=== PATIENT | female | born 1960 | race Caucasian/White ===

== ENCOUNTER → 2018-03-08 | Outpatient (CLI) | payer OTHER ==
--- NOTE | 2018-03-10 10:57 | MM ---
Reason for exam: screening (asymptomatic). Last mammogram was performed 5 years and 1 month ago. History: Patient is postmenopausal. Cyst aspiration of the left breast, June 12, 2004. Physical Findings: A clinical breast exam by your physician is recommended on an annual basis and results should be correlated with mammographic findings. MG 3D Screening Mammo W/Cad Bilateral CC and MLO view(s) were taken. Technologist: RT Rachana (R)(M) Prior study comparison: February 10, 2013, bilateral digital screening mammo w/CAD. November 03, 2011, bilateral digital screening mammo w/CAD. There are scattered fibroglandular densities. No suspicious abnormality. No significant changes when compared with prior studies. ASSESSMENT: Negative, BI-RAD 1 RECOMMENDATION: Routine screening mammogram of both breasts in 1 year.
== END | disposition home or self-care (01) ==
LOC: RADMAMWWP 13:08
PROVIDERS: ATTEND Family Medicine
DX: Z12.31 Encounter for screening mammogram for malignant neoplasm of breast (principal)
CPT/HCPCS: 77063; 77067

== ENCOUNTER → 2018-03-09 | Outpatient (CLI) | payer OTHER ==
--- NOTE | 2018-03-10 14:57 | BD ---
EXAMINATION TYPE: Axial Bone Density DATE OF EXAM: 03/09/2018 COMPARISON: NONE CLINICAL HISTORY: Height: 5 FT 1 IN Weight: 146 FRAX RISK QUESTIONS: History of Fracture in Adulthood: YES Secondary Osteoporosis: 3. Menopause before 45: YES Current Tobacco Use: YES RISK FACTORS HISTORY OF: Active: YES Postmenopausal woman: AGE 43 MEDICATIONS: Additional Medications: NONE Additional History: EXAM MEASUREMENTS: Bone mineral densitometry was performed using the [employer]. Bone mineral density as measured about the Lumbar spine is: ----- L1-L4(G/cm2): 0.878 T Score Values are as follows: ----- L2: -2.9 ----- L3: -2.9 ----- L4: -2.5 ----- L1-L4: -2.5 Bone mineral density has: DECREASED -0.1 % since study of: 2011 Bone mineral density about the R hip (g/cm2): 0.767 Bone mineral density about the L hip (g/cm2): 0.752 T Score values are as follows: -----R Neck: -1.9 -----L Neck: -2.1 -----R Total: -2.0 -----L Total: -1.9 Bone mineral density has: DECREASED -2.7 % since study of: 2011 IMPRESSION: Osteoporosis (T Score less than -2.5). There is increased fracture risk and therapy is usually indicated based on age. Re-Screen 1-2 years. NOTE: T-SCORE=SD OF THE YOUNG ADULT MEAN.
== END | disposition home or self-care (01) ==
LOC: RADBDWWP 14:49
PROVIDERS: ATTEND Family Medicine
DX: M81.0 Age-related osteoporosis without current pathological fracture (principal)
CPT/HCPCS: 77080

== ENCOUNTER 2018-03-23 07:41 | Day surgery (SDC) | payer OTHER ==
[2018-03-19 14:40] VITALS: BMI 26.2
[~2018-03-23 07:41] MED LIST: LACTATED RINGERS 1,000 ML IV SCH; LIDOCAINE 1% 20 ML VIAL (10MG/ML) FOR IV START INTRADERMA PRN
[2018-03-23 08:16] VITALS: RESP 16; TEMP 97.8
[2018-03-23] MEDS ORDERED: LIDOCAINE 1% INJ 10MG/ML (20 ML MDV) ONE (09:04)
[2018-03-23] MEDS ORDERED: PROPOFOL 10 MG/ML 20 ML VIAL IV ONE (09:04)
--- NOTE | 2018-03-23 09:27 | P.PCN ---
Date of Procedure: 03/23/18 Procedure(s) Performed: Procedure: Total colonoscopy. Preoperative diagnosis: Screening for neoplasia, patient has history of cancerous polyps and is S/P right hemicolectomy. Postoperative diagnosis: Prior hemicolectomy, otherwise exam within normal limits. Preparation: HalfLytely prep. Sedation: Was provided by anesthesia. 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 There is also a family history of colon cancer. She had appendectomy and and right hemicolectomy with all lymph nodes resected showing no evidence of cancer. She had a surveillance exam in 2009 and 2012 which were normal. At this time, she has no abdominal complaints, bleeding or anemia. Procedure: With the patient on her left lateral decubitus position and after informed consent and adequate sedation, the perianal area was inspected and it did not show any fissures or fistulas. There were no masses felt on digital rectal examination. The Olympus CFQ 160L video colonoscope was then inserted in the rectum in the usual fashion and advanced to the right side. The area of the anastomosis on the right side was noted and there was no evidence of recurrent cancer at the anastomotic site. The rest of the colon appeared healthy with no because of abnormalities, diverticular disease of polyps. I retroflexed the endoscope in the rectum before the endoscope was withdrawn. Low -grade internal hemorrhoids were noted but there was no evidence of bleeding. The patient tolerated the procedure well. Plan: The patient was reassured. She will follow-up with you as planned and I recommended repeat exam in 5 years.
[2018-03-23 09:39] VITALS: BP 128/76; PULSE 63
== END 2018-03-23 10:19 | disposition home or self-care (01) ==
LOC: ORWHC2ENDO 07:41
DX: Z12.11 Encounter for screening for malignant neoplasm of colon (principal); Z85.038 Personal history of other malignant neoplasm of large intestine; Z90.49 Acquired absence of other specified parts of digestive tract; Z98.0 Intestinal bypass and anastomosis status; Z80.0 Family history of malignant neoplasm of digestive organs; Z88.2 Allergy status to sulfonamides; Z72.0 Tobacco use
CPT/HCPCS: J2001; J2704; G0105

== ENCOUNTER → 2023-03-13 | Outpatient (CLI) | payer OTHER ==
--- NOTE | 2023-03-13 20:23 | MR ---
EXAMINATION TYPE: MR pelvis wo con DATE OF EXAM: 03/13/2023 COMPARISON: Outside imaging and [facility], radiograph 02/21/2023 CLINICAL INDICATION:Female, 63 years old with history of M25.551; Possible occult fracture Rt Pelvis, Pain in Pelvis area due to fall off kitchen counter TECHNIQUE: Triplane multisequence imaging was performed of the pelvis. IV Contrast: None FINDINGS: Reproductive: Vagina: Unremarkable. Uterus: The uterus is anteverted in position. Uterus measures 5.1 x 2.0 x 4.0 cm.. The endometrium an d junctional zone are within normal limits. Multiple nabothian cysts are seen in the lower uterine s egment. Ovaries: Right ovary is not visualized. Left ovary demonstrates simple appearing cyst measuring up to 2.7 cm. Bladder: Unremarkable. Bowel: Unremarkable as visualized. Peritoneum: A small amount of free fluid in the pelvis. Lymph nodes: No evidence of adenopathy. Vasculature: Unremarkable. Musculoskeletal: Bony edema involving the right pubic symphysis with associated suspected hematoma me asuring 2.7 x 1.4 cm within the myofascial planes of the right groin. High inversion recovery edema w ithin the sacrum is also present. No bony edema within the right hip/right femur. Abdominal wall/soft tissues: Unremarkable. CT earlier in the day IMPRESSION: 1. Suspected acute fracture of the right pubic symphysis with associated small hematoma in the myofa scial planes of the right groin area. Consider complete evaluation of the pelvis with CT. 2. Fracture of the sacrum with diffuse edema within the sacrum. This is suboptimally evaluated on MR I. Consider further evaluation of the sacrum with CT. 3. No evidence of fracture of the right hip/femur. 4. Left ovarian cyst measuring up to 2.7 cm.
== END | disposition home or self-care (01) ==
LOC: RADMRIMAIN 18:28
PROVIDERS: ATTEND Orthopaedic Surgery
DX: M25.551 Pain in right hip (principal); S32.10XA Unspecified fracture of sacrum, initial encounter for closed fracture; N83.202 Unspecified ovarian cyst, left side; X58.XXXA Exposure to other specified factors, initial encounter
CPT/HCPCS: 72195

== ENCOUNTER 2023-12-17 16:44 | Inpatient (IN) | payer OTHER ==
[2023-12-17] MEDS: KETOROLAC 15 MG/ML 1 ML VIAL IM STA (17:29)
[2023-12-17] MEDS: KETOROLAC 15 MG/ML 1 ML VIAL IVP STA (17:29)
--- NOTE | 2023-12-17 17:45 | XR ---
EXAMINATION TYPE: XR thoracic spine complete DATE OF EXAM: 12/17/2023 5:37 PM CLINICAL INDICATION:Female, 63 years old with history of pain, fall; [facility] COMPARISON: None TECHNIQUE: 2 views of the thoracic spine in Frontal and lateral projections. FINDINGS: No evidence of acute fracture. There is no evidence of disk space narrowing or loss of vertebral bod y height of the thoracic spine. Moderate multilevel degenerative changes are appreciated. IMPRESSION: No acute osseous pathology of the thoracic spine.
--- NOTE | 2023-12-17 17:46 | XR ---
EXAMINATION TYPE: XR lumbar spine 2 or 3V DATE OF EXAM: 12/17/2023 5:37 PM CLINICAL INDICATION:Female, 63 years old with history of pain, fall; [facility] COMPARISON: None TECHNIQUE: Frontal, lateral and coned in L5-S1 lateral views of the spine. FINDINGS: Compression deformity of the L1 vertebral body with approximately 25% height loss. No evide nce of significant spondylolisthesis. Moderate multilevel degenerative changes of the lumbar spine wi th facet arthropathy are identified. Multiple air-filled loops of bowel are present. IMPRESSION: Age indeterminate compression deformity of the L1 vertebral body with 25% height loss.
--- NOTE | 2023-12-17 18:39 | ED ---
Fall HPI - General Chief Complaint: Fall Stated Complaint: Back pain Time Seen by Provider: 12/17/23 17:00 Source: patient, EMS Mode of arrival: EMS - History of Present Illness Initial Comments: 63-year-old female presents emergency department via EMS accompanied by her for chief complaint of a fall on Thursday. Patient states that she was getting up in the middle the night to use the restroom, dizziness from standing up too quickly, when she went to reach for the bedroom door with a pulling sensation in her back while she fell to the ground on her right-hand side. It has been having difficulty ambulating over the last few days due to pain and tenderness of her spine. Patient denies loss of bladder or bowel continence or saddle anesthesias. Patient denies paresthesias to bilateral lower extremities, and has full range of motion intact of her lower extremities. Has been taking Tylenol Motrin at home with minimal relief. Has a history of a pelvic fracture which occurred last year. - Related Data Home Medications Medication Instructions Recorded Confirmed Ergocalciferol [Vitamin D2] 50,000 unit PO Q7D 03/19/18 03/23/18 Allergies Allergy/AdvReac Type Severity Reaction Status Date / Time Sulfa (Sulfonamide Allergy Anaphylaxis Verified 12/17/23 16:51 Antibiotics) Review of Systems ROS Statement: Those systems with pertinent positive or pertinent negative responses have been documented in the HPI. ROS Other: All systems not noted in ROS Statement are negative. Past Medical History Past Medical History: Cancer Additional Past Medical History / Comment(s): Hx of Colon CA 2009 History of Any Multi-Drug Resistant Organisms: None Reported Past Surgical History: Bowel Resection, Section Additional Past Surgical History / Comment(s): Colonoscopies Past Anesthesia/Blood Transfusion Reactions: No Reported Reaction Past Psychological History: No Psychological Hx Reported Smoking Status: Current every day smoker Past Alcohol Use History: None Reported Past Drug Use History: None Reported - Past Family History Mother Family Medical History: Cancer General Exam Limitations: no limitations General appearance: alert, in no apparent distress Head exam: Present: atraumatic, normocephalic, normal inspection Eye exam: Present: normal appearance, PERRL, EOMI. Absent: scleral icterus, conjunctival injection, periorbital swelling ENT exam: Present: normal exam, mucous membranes moist Neck exam: Present: normal inspection. Absent: tenderness, meningismus, lymphadenopathy Respiratory exam: Present: normal lung sounds bilaterally. Absent: respiratory distress, wheezes, rales, rhonchi, stridor Cardiovascular Exam: Present: regular rate, normal rhythm, normal heart sounds. Absent: systolic murmur, diastolic murmur, rubs, gallop, clicks GI/Abdominal exam: Present: soft, normal bowel sounds. Absent: distended, tenderness, guarding, rebound, rigid Extremities exam: Present: normal inspection, full ROM, normal capillary refill. Absent: tenderness, pedal edema, joint swelling, calf tenderness Back exam: Present: normal inspection, paraspinal tenderness, other (Numbness over the thoracolumbar junction with equal tenderness bilaterally, no paresthesias noted). Absent: CVA tenderness (R), CVA tenderness (L), muscle spasm Neurological exam: Present: alert, oriented X3, CN II-XII intact Psychiatric exam: Present: normal affect, normal mood Skin exam: Present: warm, dry, intact, normal color. Absent: rash Course Vital Signs 12/17/23 16:46 Temperature 98.4 F Pulse Rate 90 Respiratory 18 Rate Blood Pressure 167/89 O2 Sat by Pulse 95 Oximetry Medical Decision Making - Medical Decision Making Was pt. sent in by a medical professional or institution (, PA, [employer], urgent care, hospital, or longterm...) When possible be specific @ -No Did you speak to anyone other than the patient for history (EMS, parent, family, police, friend...)? What history was obtained from this source @ -No Did you review nursing and triage notes (agree or disagree)? Why? @ -I reviewed and agree with nursing and triage notes Were old charts reviewed (outside hosp., previous admission, EMS record, old EKG, old radiological studies, urgent care reports/EKG's, longterm records)? Report findings @ -No old charts were reviewed Differential Diagnosis (chest pain, altered mental status, abdominal pain women, abdominal pain men, vaginal bleeding, weakness, fever, dyspnea, syncope, headache, dizziness, GI bleed, back pain, seizure, CVA, palpatations, mental health, musculoskeletal)? @ -Differential Musculoskeletal Muscular strain, contusion, ligament sprain, fracture, arthritis, septic arthritis, bursitis, cellulitis, muscle spasm, nerve compression, DVT, arterial occlusion, herpes zoster, electrolyte abnormality, tumor.... This is not meant to be in all inclusive list EKG interpreted by me (3pts min.). @ -None X-rays interpreted by me (1pt min.). @ -xray of thoracic spine unremarkable, CT interpreted by me (1pt min.). @ -None done U/S interpreted by me (1pt. min.). @ -None done What testing was considered but not performed or refused? (CT, X-rays, U/S, labs)? Why? @ -None What meds were considered but not given or refused? Why? @ -None Did you discuss the management of the patient with other professionals (professionals i.e. , PA, [employer], lab, RT, psych nurse, addiction social worker, refinery operator helper, teacher, title officer, rn field case manager)? Give summary @ -I discussed this case with [facility], who is agreeable with admission for the patient for pain control and evaluation by orthopedics due to difficulty ambulating. Was smoking cessation discussed for >3mins.? @ -No Was critical care preformed (if so, how long)? @ -No Were there social determinants of health that impacted care today? How? (Homelessness, low income, unemployed, alcoholism, drug addiction, transportation, low edu. Level, literacy, decrease access to med. care, fci, rehab)? @ -No Was there de-escalation of care discussed even if they declined (Discuss DNR or withdrawal of care, Hospice)? DNR status @ -No What co-morbidities impacted this encounter? (DM, HTN, Smoking, COPD, CAD, Cancer, CVA, ARF, Chemo, Hep., AIDS, mental health diagnosis, sleep apnea, morbid obesity)? @ -None Was patient admitted / discharged? Hospital course, mention meds given and route, prescriptions, significant lab abnormalities, going to OR and other pertinent info. @ -Admitted. 63-year-old female with back pain after fall. physical exam remarkable for paraspinal tenderness over the thoracolumbar junction, with no acute range of motion or neurological deficits. Denies any acute bony abnormalities on physical exam. Patient has difficult time rotating in bed due to lower back pain. Age-indeterminate compression deformity of the L1 vertebral body with a 25% height loss. On reevaluation, patient states that she feels better after administration of IM Toradol. Discussed findings with patient would benefit from follow-up outpatient with orthopedics. On discussion, patient and patient's are concerned that she has been having a difficult time ambulating at home and her quality of life has decreased due to the pain in her back limiting her everyday mobility and living. I discussed this case with [facility] for potential admission, and they are agreeable for patient with orthopedics for further evaluation. bservation I discussed this case with my attending Dr. Howard, who is agreeable with plan and for observation Undiagnosed new problem with uncertain prognosis? @ -No Drug Therapy requiring intensive monitoring for toxicity (Heparin, Nitro, Insulin, Cardizem)? @ -No Were any procedures done? @ -No Diagnosis/symptom? @ -compression fracture of lumbar spine, back pain Acute, or Chronic, or Acute on Chronic? @ -Acute Uncomplicated (without systemic symptoms) or Complicated (systemic symptoms)? @ -uncomplicated Side effects of treatment? @ -No Exacerbation, Progression, or Severe Exacerbation? @ -No Poses a threat to life or bodily function? How? (Chest pain, [place], [place], pneumonia, PE, COPD, DKA, ARF, appy, cholecystitis, CVA, Diverticulitis, Homicidal, Suicidal, threat to staff... and all critical care pts) @ -No Disposition Clinical Impression: Fall, Compression fracture of L1 lumbar vertebra Disposition: ADMITTED IP TO THIS HOSP Condition: Good Referrals: Gurdeep Shultz MD [Primary Care Provider] - 1-2 days Decision to Admit Reason: Admit from (L1 compression fracture, difficulty ambulation) Decision Date: 12/17/23 Decision Time: 18:38
[2023-12-17] MEDS ORDERED: NALOXONE 0.4 MG/ML 1 ML VIAL IV PRN (18:50)
[2023-12-17 19:10] LABS: HCT 43.2 % (34.0-46.0); HGB 13.8 gm/dL (11.4-16.0); MCH 35.5 pg (25.0-35.0); MCHC 31.9 g/dL (31.0-37.0); MCV 111.4 fL (80.0-100.0); Macrocytosis Marked; Mean Platelet Volume 7.9; Platelet Count 200 k/uL (150-450); RBC 3.88 m/uL (3.80-5.40); RDW 12.8 % (11.5-15.5); WBC 8.2 k/uL (3.8-10.6)
[2023-12-17 19:21] LABS: African American GFR (CKD) >90 (>60 ml/min/1.73 sqM); Anion Gap 8 mmol/L; Blood Urea Nitrogen 30 mg/dL (7-17); Calcium 8.4 mg/dL (8.4-10.2); Carbon Dioxide 17 mmol/L (22-30); Chloride 113 mmol/L (98-107); Glucose 114 mg/dL (74-99); Non-African American GFR(CKD) >90 (>60 ml/min/1.73 sqM); Sodium 138 mmol/L (137-145)
[2023-12-17 19:34] LABS: Potassium 4.1 mmol/L (3.5-5.1)
[2023-12-17] MEDS: ACETAMINOPHEN TAB 325 MG TAB PO PRN (20:07)
[2023-12-17] MEDS: IBUPROFEN 400 MG TAB PO PRN (23:17)
[2023-12-18] MEDS: KETOROLAC 15 MG/ML 1 ML VIAL IVP PRN (09:31)
[2023-12-18] MEDS: LIDOCAINE 4% PATCH TOPICAL SCH (15:07)
--- NOTE | 2023-12-18 15:14 | P.CNOR ---
History of Present Illness - [facility] Consult date: 12/18/23 Consult reason: low back pain ( Lumbar compression fracture) History of present illness: patient is a 63-year-old female who presented to [facility] on 12/17/2023 with regards to worsening low back pain. Apparently the patient had a Fall last Thursday. Patient got up to use the restroom and became dizzy when she stumbled she felt a significant strain in her low back and then fell to the floor. A she has been able to ambulate over the last week or so, it is progressively getting worse. She has had a lot of worsening back pain with attempts to ambulate. Patient was admitted to [facility] for further evaluation under internal medicine, our orthopedic team was then danial andrews. Patient was evaluated today at bedside, she is resting comfortably in her hospital bed, family is present at bedside. Patient states most of the pain is with initiation of motion, she feels it in the center of her low back. Patient denies any numbness or tingling to the bilateral lower extremities or upper extremities at this time. Patient has had normal bowel movements and been urinating with no difficulty. She denies any numbness or tingling to the perineal or genital region. She denies any previous surgery to her lumbar spine. She admits to a pelvic fracture about 10 months ago that was treated conservatively by the other orthopedic group in town. This was on the right-hand side. Patient normally utilizes no assistive devices for ambulation. Patient has no other orthopedic complaints at this time. Review of Systems Constitutional: Reports as per [facility] Past Medical History Past Medical History: Cancer Additional Past Medical History / Comment(s): Hx of Colon CA 2009 History of Any Multi-Drug Resistant Organisms: None Reported Past Surgical History: Bowel Resection, Section Additional Past Surgical History / Comment(s): Colonoscopies Past Anesthesia/Blood Transfusion Reactions: No Reported Reaction Past Psychological History: No Psychological Hx Reported Smoking Status: Former smoker Past Alcohol Use History: None Reported Additional Past Alcohol Use History / Comment(s): has smoked for 38 years 1ppd, last cigarette Thursday before fall, none since and pt states she'd like to quit Past Drug Use History: None Reported - Past Family History Mother Family Medical History: Cancer Medications and Allergies Home Medications Medication Instructions Recorded Confirmed Type Acetaminophen Tab [Tylenol Tab] 2,000 mg PO Q6HR PRN 12/17/23 12/17/23 History Multivit-Minerals/Folic Acid 80 mcg PO DAILY 12/17/23 12/17/23 History [Centrum Adult 50 Plus Gummy] Allergies Allergy/AdvReac Type Severity Reaction Status Date / Time Sulfa (Sulfonamide Allergy Anaphylaxis Verified 12/17/23 19:26 Antibiotics) Physical Examination Gen: AOx3, NAD VSS stable at this time Integument: No open lesions or sores are visualized throughout the lumbar spine Palpation: Tenderness with palpation is noted both midline and paraspinal region of the lumbar spine. Patient demonstrates no point tenderness to the bilateral lower extremity ROM: full range of motion in all major muscle groups of the bilateral upper and lower extremities, no focal deficits appreciated Sensory Exam: Senory exam to light touch is intact C5-T1 Senosry exam to light touch is intact L2-S1 Motor: 4+/5 strength appreciated the bilateral lower extremities with hip flexion 5/5 strength appreciated in the bilateral lower extremities with knee extension, knee flexion, plantarflexion, dorsiflexion, EHL, FHL Reflexes: 2/4 in all UE and LE negative clonus bilaterally, negative Babinski bilaterally Results - Labs Labs: Abnormal Lab Results - Last 24 Hours (Table) 12/17/23 12/17/23 Range/Units 18:56 18:56 MCV 111.4 H (80.0-100.0) fL MCH 35.5 H (25.0-35.0) pg Macrocytosis Marked A Chloride 113 H (98-107) mmol/L Carbon Dioxide 17 L (22-30) mmol/L BUN 30 H (7-17) mg/dL Glucose 114 H (74-99) mg/dL H & H 12/17/23 Range/Units 18:56 Hgb 13.8 (11.4-16.0) gm/dL Hct 43.2 (34.0-46.0) % Result Diagrams: 12/17/23 18:56 12/17/23 18:56 - Diagnostic results Lumbar AP/lateral x-ray: report reviewed, image reviewed ( images and reports were reviewed of the lumbar spine. Images demonstrate compressive deformity of the L1 vertebral body.) Assessment and Plan Assessment: Low back pain L1 vertebral body compression fracture Difficulty with ambulation Other medical comorbidities Plan: I was able to discuss the case, this to include both physical exam findings and imaging studies with my attending Dr. Escobar. No emergent orthopedic surgical intervention is recommended at this time. Patient is demonstrating no acute neuropathic signs at this time. CT scan of the lumbar spine without contrast will be ordered to further evaluate for burst fracture pathology LSO brace has been ordered, I did discuss this with case management Pain control, recommend the use of anti-inflammatories, muscle relaxers and low-dose oral narcotics PT/OT recommendation, weight-bear as tolerated, avoid bending, twisting and lifting DVT prophylaxis per primary medical service Other medical specialty recommendations appreciated Will continue to follow during hospital stay Time with Patient: Less than 30
--- NOTE | 2023-12-18 16:08 | CT ---
EXAMINATION TYPE: CT lumbar spine wo con DATE OF EXAM: 12/18/2023 3:50 PM COMPARISON: Lumbar spine radiograph dated 12/17/2023 HISTORY: L1 compression fx. CT DLP: 993 mGycm Automated exposure control for dose reduction was used. Unenhanced CT of the lumbar spine was performed. Bone and soft tissue window settings are submitted as well as coronal and sagittal reconstructions. Findings: There is a moderate compression fracture of T12 with mild 10-15% retropulsion. Remaining lumbar vertebral segments are normal in height and alignment and there is no subluxation. T he disc spaces are well-maintained in height. The facet joints are intact. There are bilateral nondisplaced right sacral alar fractures. There is no lumbar disc herniation or spinal stenosis. IMPRESSION: 1. Moderate compression fracture of T12 with 10-15% retropulsion. 2. Bilateral sacral alar fractures.. 3. No large lumbar disc herniation and no spinal stenosis. 4. No significant degenerative disc disease.
--- NOTE | 2023-12-18 18:19 | P.HPIM ---
History of Present Illness H&P Date: 12/18/23 Chief Complaint: Fall/back pain 63-year-old female, with history of colon cancer in 2008, and vitamin D deficiency presents emergency department via EMS accompanied by her for chief complaint of a fall on Thursday. Patient states that she was getting up in the middle the night to use the restroom, dizziness from standing up too quickly, when she went to reach for the bedroom door with a pulling sensation in her back while she fell to the ground on her right-hand side. It has been having difficulty ambulating over the last few days due to pain and tenderness of her spine. Patient denies loss of bladder or bowel continence or saddle anesthesias. Patient denies paresthesias to bilateral lower extremities, and has full range of motion intact of her lower extremities. Has been taking Tylenol Motrin at home with minimal relief. Has a history of a pelvic fracture which occurred last year, patient was treated conservatively. X-ray of the thoracic spine is unremarkable X-ray of lumbar spine reveals indeterminate compression deformity of L1 vertebra with 25% height loss CT of the lumbar spine reveals moderate compression fraction of T12 with 10 to 15% retropulsion Review of Systems REVIEW OF SYSTEMS: CONSTITUTIONAL: No fever, no malaise, no fatigue. HEENT: No recent visual problems or hearing problems. Denied any sore throat. CARDIOVASCULAR: No chest pain, orthopnea, PND, no palpitations, no syncope. PULMONARY: No shortness of breath, no cough, no hemoptysis. GASTROINTESTINAL: No diarrhea, no nausea, no vomiting, no abdominal pain. NEUROLOGICAL: No headaches, no weakness, no numbness. HEMATOLOGICAL: Denies any bleeding or petechiae. GENITOURINARY: Denies any burning micturition, frequency, or urgency. MUSCULOSKELETAL/RHEUMATOLOGICAL: Denies any joint pain, swelling, or any muscle pain. ENDOCRINE: Denies any polyuria or polydipsia. The rest of the 14-point review of systems is negative. Past Medical History Past Medical History: Cancer Additional Past Medical History / Comment(s): Hx of Colon CA 2008 History of Any Multi-Drug Resistant Organisms: None Reported Past Surgical History: Bowel Resection, Section Additional Past Surgical History / Comment(s): Colonoscopies Past Anesthesia/Blood Transfusion Reactions: No Reported Reaction Past Psychological History: No Psychological Hx Reported Smoking Status: Former smoker Past Alcohol Use History: None Reported Additional Past Alcohol Use History / Comment(s): has smoked for 38 years 1ppd, last cigarette Thursday before fall, none since and pt states she'd like to quit Past Drug Use History: None Reported - Past Family History Mother Family Medical History: Cancer Medications and Allergies Home Medications Medication Instructions Recorded Confirmed Type Acetaminophen Tab [Tylenol Tab] 2,000 mg PO Q6HR PRN 12/17/23 12/17/23 History Multivit-Minerals/Folic Acid 80 mcg PO DAILY 12/17/23 12/17/23 History [Centrum Adult 50 Plus Gummy] Allergies Allergy/AdvReac Type Severity Reaction Status Date / Time Sulfa (Sulfonamide Allergy Anaphylaxis Verified 12/17/23 19:26 Antibiotics) Physical Exam Vitals: Vital Signs Temp Pulse Pulse Resp BP BP Pulse Ox 12/18/23 11:38 98.1 F 83 18 123/77 93 L 12/18/23 07:12 98.1 F 79 18 148/74 94 L 12/18/23 02:00 98.0 F 67 18 141/79 94 L 12/18/23 00:42 98.1 F 80 20 148/81 95 12/17/23 23:00 98.2 F 83 18 153/88 95 12/17/23 22:00 98 F 72 18 130/80 94 L 12/17/23 21:00 98.3 F 82 18 134/85 95 12/17/23 19:00 98.6 F 82 18 140/86 96 12/17/23 18:56 98.1 F 82 18 146/83 97 12/17/23 16:46 98.4 F 90 18 167/89 95 Intake and Output 12/17/23 12/18/23 12/18/23 22:59 06:59 14:59 Other: Voiding Method External Catheter # Voids 1 Weight 70.307 kg 70.307 kg General appearance: alert, in no apparent distress Head exam: Present: atraumatic, normocephalic, normal inspection Eye exam: Present: normal appearance, PERRL, EOMI. Absent: scleral icterus, conjunctival injection, periorbital swelling ENT exam: Present: normal exam, mucous membranes moist Neck exam: Present: normal inspection. Absent: tenderness, meningismus, lymphadenopathy Respiratory exam: Present: normal lung sounds bilaterally. Absent: respiratory distress, wheezes, rales, rhonchi, stridor Cardiovascular Exam: Present: regular rate, normal rhythm, normal heart sounds. Absent: systolic murmur, diastolic murmur, rubs, gallop, clicks GI/Abdominal exam: Present: soft, normal bowel sounds. Absent: distended, tenderness, guarding, rebound, rigid Extremities exam: Present: normal inspection, full ROM, normal capillary refill. Absent: tenderness, pedal edema, joint swelling, calf tenderness Back exam: Present: normal inspection, paraspinal tenderness, other (Numbness over the thoracolumbar junction with equal tenderness bilaterally, no paresthesias noted). Absent: CVA tenderness (R), CVA tenderness (L), muscle spasm Neurological exam: Present: alert, oriented X3, CN II-XII intact Results CBC & Chem 7: 12/17/23 18:56 12/17/23 18:56 Labs: Abnormal Lab Results - Last 24 Hours (Table) 12/17/23 12/17/23 Range/Units 18:56 18:56 MCV 111.4 H (80.0-100.0) fL MCH 35.5 H (25.0-35.0) pg Macrocytosis Marked A Chloride 113 H (98-107) mmol/L Carbon Dioxide 17 L (22-30) mmol/L BUN 30 H (7-17) mg/dL Glucose 114 H (74-99) mg/dL Thrombosis Risk Factor Assmnt - Choose All That Apply Any of the Below Risk Factors Present?: Yes Each Factor Represents 1 point: Obesity (BMI >25) Other Risk Factors: Yes Each Risk Factor Represents 2 Points: Age 61-74 years Other congenital or acquired thrombophilia - If yes, enter type in comment: No Thrombosis Risk Factor Assessment Total Risk Factor Score: 3 Thrombosis Risk Factor Assessment Level: Moderate Risk Assessment and Plan Assessment: 1. Fall with compression fracture of T12 vertebra on CT of thoracic spine --X-ray of thoracic spine reveals L1 vertebral body fracture with 25% height loss which is indeterminate age -- Patient has been evaluated by orthopedic surgery; no emergent orthopedic surgical intervention is recommended -- LSO brace is ordered -Pain control with anti-inflammatory medications, muscle relaxers and low-dose oral narcotics -- PT/OT is consulted with weightbearing as tolerated, avoid bending, twisting and lifting 2. Mild JESSICA; BUN slightly elevated at 30 with creatinine normal at 0.65; patient is encouraged to increase fluid intake DVT prophylaxis; SCDs/subcu heparin CODE STATUS; full code
[2023-12-18] MEDS: HYDROcodone/APAP 7.5-325MG 1 EACH TAB PO PRN (22:13)
[2023-12-19] MEDS: MULTIVITAMINS, THERA 1 EACH TAB PO SCH (08:27)
[2023-12-19 09:25] LABS: HCT 39.6 % (37.2-46.3); MCH 35.7 pg (27.0-32.0); MCHC 32.8 g/dL (32.0-37.0); MCV 108.8 FL (80.0-97.0); Mean Platelet Volume 9.9 FL (9.5-12.2); NRBC Per 100 WBC 0 X 10*3/uL (0.00-0.01); Platelet Count 187 X 10*3/uL (140-440); RBC 3.64 X 10*6/uL (4.10-5.20); RDW 12.8 % (11.5-14.5); WBC 5.66 X 10*3/uL (4.50-10.00)
[2023-12-19 09:46] LABS: Blood Urea Nitrogen 30.3 mg/dL (9.0-27.0); Calcium 9.1 mg/dL (8.7-10.3); Carbon Dioxide 21.3 mmol/L (21.6-31.8); Chloride 107 mmol/L (96-109); Glucose 89 mg/dL (70-110); Potassium 3.5 mmol/L (3.5-5.5); Sodium 140 mmol/L (135-145)
[2023-12-19 10:06] LABS: Basophils # (A) 0.01 X 10*3/uL (0.00-0.10); Basophils % (A) 0.2 %; Eosinophils # (A) 0.17 X 10*3/uL (0.04-0.35); Lymphocytes # (A) 1.33 X 10*3/uL (0.90-5.00); Lymphocytes % (A) 23.5 %; Macrocytosis (M) 2+; Monocytes # (A) 0.62 X 10*3/uL (0.20-1.00); Neutrophils # (A) 3.51 X 10*3/uL (1.80-7.70); Neutrophils % (A) 61.9 %
--- NOTE | 2023-12-19 14:14 | P.PN ---
Subjective Progress Note Date: 12/19/23 Principal diagnosis: T12 A3 burst fracture Right sacral alar fracture, old Low back pain Difficulty with ambulation Patient was evaluated today at bedside, her was also present. Patient has not got out of bed and ambulated at this time, the LSO brace was delivered yesterday. Patient continues to have significant low back pain and difficulty with trying to move around in bed. She currently has no headaches, lightheadedness, chest pain or shortness of breath Objective - Vital Signs Vital signs: Vital Signs Temp 98.1 F 12/19/23 12:33 Pulse 76 12/19/23 12:33 Resp 16 12/19/23 12:33 BP 134/72 12/19/23 12:33 Pulse Ox 95 12/19/23 12:33 FiO2 Intake & Output 12/18/23 12/19/23 12/19/23 18:59 06:59 18:59 Output Total 300 200 Balance -300 -200 Output: Urine 300 200 Other: Voiding Method External Catheter External Catheter External Catheter # Voids 2 - Exam Gen: AOx3, NAD VSS stable at this time Integument: No open lesions or sores are visualized throughout the lumbar spine Palpation: Tenderness with palpation is noted both midline and paraspinal region of the lumbar spine. Patient demonstrates no point tenderness to the bilateral lower extremity ROM: full range of motion in all major muscle groups of the bilateral upper and lower extremities, no focal deficits appreciated Sensory Exam: Senory exam to light touch is intact C5-T1 Senosry exam to light touch is intact L2-S1 Motor: 4+/5 strength appreciated the bilateral lower extremities with hip flexion 5/5 strength appreciated in the bilateral lower extremities with knee extension, knee flexion, plantarflexion, dorsiflexion, EHL, FHL Reflexes: 2/4 in all UE and LE negative clonus bilaterally, negative Babinski bilaterally - Labs CBC & Chem 7: 12/19/23 06:20 12/19/23 06:20 Labs: Abnormal Lab Results - Last 24 Hours (Table) 12/19/23 12/19/23 Range/Units 06:20 06:20 RBC 3.64 L (4.10-5.20) X 10*6/uL MCV 108.8 H (80.0-97.0) FL MCH 35.7 H (27.0-32.0) pg Macrocytosis (manual) 2+ A Carbon Dioxide 21.3 L (21.6-31.8) mmol/L BUN 30.3 H (9.0-27.0) mg/dL BUN/Creatinine Ratio 50.50 H (12.00-20.00) Ratio Assessment and Plan Assessment: Low back pain T12 A3 burst fracture Right-sided sacral alar fracture, old Difficulty with ambulation Other medical comorbidities Plan: I was able to discuss the CT scan results with my attending Dr. Gallegos sent. Will plan to continue with conservative measures, this to include weight-bear as tolerated with the brace. Depending outpatient progresses with physical therapy, we may consider further conservative measures versus discussing surgical intervention to help stabilize fracture. Pain control, recommend the use of anti-inflammatories, muscle relaxers and low-dose oral narcotics PT/OT recommendation, weight-bear as tolerated, avoid bending, twisting and lifting DVT prophylaxis per primary medical service Other medical specialty recommendations appreciated Will continue to follow during hospital stay
[2023-12-19] MEDS: ACETAMINOPHEN TAB 500 MG TAB PO PRN (17:58)
--- NOTE | 2023-12-19 18:29 | P.PN ---
Subjective Progress Note Date: 12/19/23 63-year-old female, with history of colon cancer in 2008, and vitamin D deficiency presents emergency department via EMS accompanied by her for chief complaint of a fall on Thursday. Patient states that she was getting up in the middle the night to use the restroom, dizziness from standing up too q uickly, when she went to reach for the bedroom door with a pulling sensation in her back while she fell to the ground on her right-hand side. It has been having difficulty ambulating over the last few days due to pain and tenderness of her spine. Patient denies loss of bladder or bowel continence or saddle anesthesias. Patient denies paresthesias to bilateral lower extremities, and has full range of motion intact of her lower extremities. Has been taking Tylenol Motrin at home with minimal relief. Has a history of a pelvic fracture which occurred last year, patient was treated conservatively. X-ray of the thoracic spine is unremarkable X-ray of lumbar spine reveals indeterminate compression deformity of L1 vertebra with 25% height loss CT of the lumbar spine reveals moderate compression fraction of T12 with 10 to 15% retropulsion Objective - Vital Signs Vital signs: Vital Signs Temp 98.0 F 12/19/23 07:41 Pulse 77 12/19/23 11:39 Resp 20 12/19/23 11:39 BP 138/76 12/19/23 07:41 Pulse Ox 94 L 12/19/23 07:41 FiO2 Intake & Output 12/18/23 12/19/23 12/19/23 18:59 06:59 18:59 Output Total 300 200 Balance -300 -200 Output: Urine 300 200 Other: Voiding Method External Catheter External Catheter External Catheter - Exam General appearance: alert, in no apparent distress Head exam: Present: atraumatic, normocephalic, normal inspection Eye exam: Present: normal appearance, PERRL, EOMI. Absent: scleral icterus, conjunctival injection, periorbital swelling ENT exam: Present: normal exam, mucous membranes moist Neck exam: Present: normal inspection. Absent: tenderness, meningismus, lymphadenopathy Respiratory exam: Present: normal lung sounds bilaterally. Absent: respiratory distress, wheezes, rales, rhonchi, stridor Cardiovascular Exam: Present: regular rate, normal rhythm, normal heart sounds. Absent: systolic murmur, diastolic murmur, rubs, gallop, clicks GI/Abdominal exam: Present: soft, normal bowel sounds. Absent: distended, tenderness, guarding, rebound, rigid Extremities exam: Present: normal inspection, full ROM, normal capillary refill. Absent: tenderness, pedal edema, joint swelling, calf tenderness Back exam: Present: normal inspection, paraspinal tenderness, other (Numbness over the thoracolumbar junction with equal tenderness bilaterally, no paresthesias noted). Absent: CVA tenderness (R), CVA tenderness (L), muscle spasm Neurological exam: Present: alert, oriented X3, CN II-XII intact - Labs CBC & Chem 7: 12/19/23 06:20 12/19/23 06:20 Labs: Abnormal Lab Results - Last 24 Hours (Table) 12/19/23 12/19/23 Range/Units 06:20 06:20 RBC 3.64 L (4.10-5.20) X 10*6/uL MCV 108.8 H (80.0-97.0) FL MCH 35.7 H (27.0-32.0) pg Macrocytosis (manual) 2+ A Carbon Dioxide 21.3 L (21.6-31.8) mmol/L BUN 30.3 H (9.0-27.0) mg/dL BUN/Creatinine Ratio 50.50 H (12.00-20.00) Ratio Assessment and Plan Assessment: 1. Fall with compression fracture of T12 vertebra on CT of thoracic spine --X-ray of thoracic spine reveals L1 vertebral body fracture with 25% height loss which is indeterminate age -- Patient has been evaluated by orthopedic surgery; no emergent orthopedic surgical intervention is recommended -- LSO brace is ordered -Pain control with anti-inflammatory medications, muscle relaxers and low-dose oral narcotics -- PT/OT is consulted with weightbearing as tolerated, avoid bending, twisting and lifting 2. Mild JESSICA; BUN slightly elevated at 30 with creatinine normal at 0.65; patient is encouraged to increase fluid intake DVT prophylaxis; SCDs/subcu heparin CODE STATUS; full code
--- NOTE | 2023-12-20 11:59 | P.PN ---
Subjective Progress Note Date: 12/20/23 Principal diagnosis: T12 A3 burst fracture Right sacral alar fracture, old Low back pain Difficulty with ambulation Patient was evaluated today at bedside, she is resting in her hospital bed. Patient was able to get up and ambulate today with minimal assistance, she did utilize the LSO brace. She states that she is feeling a little bit better. She currently has no headaches, lightheadedness, chest pain or shortness of breath Objective - Vital Signs Vital signs: Vital Signs Temp 97.9 F 12/20/23 07:28 Pulse 73 12/20/23 07:28 Resp 16 12/20/23 07:28 BP 141/72 12/20/23 07:28 Pulse Ox 94 L 12/20/23 07:28 FiO2 Intake & Output 12/19/23 12/20/23 12/20/23 18:59 06:59 18:59 Output Total 300 Balance -300 Output: Urine 300 Other: Voiding Method External Catheter Bedside Commode Bedside Commode External Catheter External Catheter # Voids 3 1 - Exam Gen: AOx3, NAD VSS stable at this time Integument: No open lesions or sores are visualized throughout the lumbar spine Palpation: Tenderness with palpation is noted both midline and paraspinal region of the lumbar spine. Patient demonstrates no point tenderness to the bilateral lower extremity ROM: full range of motion in all major muscle groups of the bilateral upper and lower extremities, no focal deficits appreciated Sensory Exam: Senory exam to light touch is intact C5-T1 Senosry exam to light touch is intact L2-S1 Motor: 4+/5 strength appreciated the bilateral lower extremities with hip flexion 5/5 strength appreciated in the bilateral lower extremities with knee extension, knee flexion, plantarflexion, dorsiflexion, EHL, FHL Reflexes: 2/4 in all UE and LE negative clonus bilaterally, negative Babinski bilaterally - Labs CBC & Chem 7: 12/19/23 06:20 12/19/23 06:20 Assessment and Plan Assessment: Low back pain T12 A3 burst fracture Right-sided sacral alar fracture, old Difficulty with ambulation Other medical comorbidities Plan: Recommend continuing conservative measures. I would like to see how the patient does with physical therapy tomorrow, this including how she is able to get out of bed and ambulate. Recommending use of the LSO brace while up. Continue oral anti-inflammatories, low-dose muscle relaxer as needed. PT/OT recommendation, weight-bear as tolerated, avoid bending, twisting and lifting DVT prophylaxis per primary medical service Other medical specialty recommendations appreciated Pending outpatient does with physical therapy tomorrow, the hope is we can foll ow this patient in the outpatient setting and continue conservative measures, versus the discussion of surgical intervention. Time with Patient: Less than 30
[2023-12-20] MEDS: LACTULOSE 20 GM/30 ML CUP PO SCH (13:22)
--- NOTE | 2023-12-20 14:07 | P.PN ---
Subjective Progress Note Date: 12/20/23 63-year-old female, with history of colon cancer in 2008, and vitamin D deficiency presents emergency department via EMS accompanied by her for chief complaint of a fall on Thursday. Patient states that she was getting up in the middle the night to use the restroom, dizziness from standing up too q uickly, when she went to reach for the bedroom door with a pulling sensation in her back while she fell to the ground on her right-hand side. It has been having difficulty ambulating over the last few days due to pain and tenderness of her spine. Patient denies loss of bladder or bowel continence or saddle anesthesias. Patient denies paresthesias to bilateral lower extremities, and has full range of motion intact of her lower extremities. Has been taking Tylenol Motrin at home with minimal relief. Has a history of a pelvic fracture which occurred last year, patient was treated conservatively. X-ray of the thoracic spine is unremarkable X-ray of lumbar spine reveals indeterminate compression deformity of L1 vertebra with 25% height loss CT of the lumbar spine reveals moderate compression fraction of T12 with 10 to 15% retropulsion 12/20/2023 Patient is seen and evaluated resting in bed; reports she was able to ambulate with LSO brace Vital signs are reviewed and stable with temperature 97.9, pulse 73, respirations 16 and blood pressure of 141/72 O2 saturation 94% on room air Patient is admitted post fall with T12 burst fracture Orthopedic surgery on board and recommending to continue with conservative treatment with anti-inflammatories, muscle relaxers as needed --Orthopedic surgery recommending patient set up for outpatient PT with weightbearing as tolerated, avoid bending, twisting and lifting; patient can be discharged tomorrow and will follow-up with orthopedic surgery as an outpatient Objective - Vital Signs Vital signs: Vital Signs Temp 97.9 F 12/20/23 07:28 Pulse 73 12/20/23 07:28 Resp 16 12/20/23 07:28 BP 141/72 12/20/23 07:28 Pulse Ox 94 L 12/20/23 07:28 FiO2 Intake & Output 12/19/23 12/20/23 12/20/23 18:59 06:59 18:59 Output Total 300 Balance -300 Output: Urine 300 Other: Voiding Method External Catheter Bedside Commode Bedside Commode External Catheter External Catheter # Voids 3 1 - Exam General appearance: alert, in no apparent distress Head exam: Present: atraumatic, normocephalic, normal inspection Eye exam: Present: normal appearance, PERRL, EOMI. Absent: scleral icterus, conjunctival injection, periorbital swelling ENT exam: Present: normal exam, mucous membranes moist Neck exam: Present: normal inspection. Absent: tenderness, meningismus, lymphadenopathy Respiratory exam: Present: normal lung sounds bilaterally. Absent: respiratory distress, wheezes, rales, rhonchi, stridor Cardiovascular Exam: Present: regular rate, normal rhythm, normal heart sounds. Absent: systolic murmur, diastolic murmur, rubs, gallop, clicks GI/Abdominal exam: Present: soft, normal bowel sounds. Absent: distended, tenderness, guarding, rebound, rigid Extremities exam: Present: normal inspection, full ROM, normal capillary refill. Absent: tenderness, pedal edema, joint swelling, calf tenderness Back exam: Present: normal inspection, paraspinal tenderness, other (Numbness over the thoracolumbar junction with equal tenderness bilaterally, no pares thesias noted). Absent: CVA tenderness (R), CVA tenderness (L), muscle spasm Neurological exam: Present: alert, oriented X3, CN II-XII intact - Labs CBC & Chem 7: 12/19/23 06:20 12/19/23 06:20 Assessment and Plan Assessment: 1. Fall with compression fracture of T12 vertebra on CT of thoracic spine --X-ray of thoracic spine reveals L1 vertebral body fracture with 25% height loss which is indeterminate age -- Patient has been evaluated by orthopedic surgery; no emergent orthopedic surgical intervention is recommended -- LSO brace is ordered -Pain control with anti-inflammatory medications, muscle relaxers and low-dose oral narcotics -- PT/OT is consulted with weightbearing as tolerated, avoid bending, twisting and lifting 2. Mild JESSICA; BUN slightly elevated at 30 with creatinine normal at 0.65; patient is encouraged to increase fluid intake DVT prophylaxis; SCDs/subcu heparin CODE STATUS; full code
--- NOTE | 2023-12-21 14:45 | P.PN ---
Subjective Progress Note Date: 12/21/23 Principal diagnosis: T12 A3 burst fracture Right sacral alar fracture, old Low back pain Difficulty with ambulation Patient was evaluated today at bedside, she is resting in her hospital bed. Patient continues to rate her pain extremely high without medication, she continues to utilize the LSO brace. Review of physical therapy notes did demonstrate she was able to weight-bear with a walker with minimal assistance. She currently has no headaches, lightheadedness, chest pain or shortness of breath Objective - Vital Signs Vital signs: Vital Signs Temp 97.5 F L 12/21/23 11:52 Pulse 102 H 12/21/23 11:52 Resp 18 12/21/23 11:52 BP 143/68 12/21/23 11:52 Pulse Ox 97 12/21/23 11:52 FiO2 Intake & Output 12/20/23 12/21/23 12/21/23 18:59 06:59 18:59 Other: Voiding Method Bedside Commode Bedside Commode External Catheter External Catheter # Voids 3 1 1 - Exam Gen: AOx3, NAD VSS stable at this time Integument: No open lesions or sores are visualized throughout the lumbar spine Palpation: Tenderness with palpation is noted both midline and paraspinal region of the lumbar spine. Patient demonstrates no point tenderness to the bilateral lower extremity ROM: full range of motion in all major muscle groups of the bilateral upper and lower extremities, no focal deficits appreciated Sensory Exam: Senory exam to light touch is intact C5-T1 Senosry exam to light touch is intact L2-S1 Motor: 4+/5 strength appreciated the bilateral lower extremities with hip flexion 5/5 strength appreciated in the bilateral lower extremities with knee extension, knee flexion, plantarflexion, dorsiflexion, EHL, FHL Reflexes: 2/4 in all UE and LE negative clonus bilaterally, negative Babinski bilaterally - Labs CBC & Chem 7: 12/19/23 06:20 12/19/23 06:20 Assessment and Plan Assessment: Low back pain T12 A3 burst fracture Right-sided sacral alar fracture, old Difficulty with ambulation Other medical comorbidities Plan: Patient continues to rate her pain quite high, she has done very minimal acti vity at this time. She did do okay with physical therapy today. We discussed the higher likelihood of surgical intervention, this to include posterior stabilization from T10-L1 with the possibility of spine armando versus kyphoplasty. Dr. Gallegos's and will be available in hospital on 12/22/2023 to discuss this further with the patient. Pain control, continue with current medications PT/OT recommendation, weight-bear as tolerated, avoid bending, twisting and lifting DVT prophylaxis per primary medical service Other medical specialty recommendations appreciated Further recommendations to follow Time with Patient: Less than 30
--- NOTE | 2023-12-21 20:24 | P.PN ---
Subjective 63-year-old female, with history of colon cancer in 2008, and vitamin D deficiency presents emergency department via EMS accompanied by her for chief complaint of a fall on Thursday. Patient states that she was getting up in the middle the night to use the restroom, dizziness from standing up too quickly, when she went to reach for the bedroom door with a pulling sensation in her back while she fell to the ground on her right-hand side. It has been having difficulty ambulating over the last few days due to pain and tenderness of her spine. Patient denies loss of bladder or bowel continence or saddle anesthesias. Patient denies paresthesias to bilateral lower extremities, and has full range of motion intact of her lower extremities. Has been taking Tylenol Motrin at home with minimal relief. Has a history of a pelvic fracture which occurred last year, patient was treated conservatively. X-ray of the thoracic spine is unremarkable X-ray of lumbar spine reveals indeterminate compression deformity of L1 vertebra with 25% height loss CT of the lumbar spine reveals moderate compression fraction of T12 with 10 to 15% retropulsion 12/20/2023 Patient is seen and evaluated resting in bed; reports she was able to ambulate with LSO brace Vital signs are reviewed and stable with temperature 97.9, pulse 73, respirations 16 and blood pressure of 141/72 O2 saturation 94% on room air Patient is admitted post fall with T12 burst fracture Orthopedic surgery on board and recommending to continue with conservative treatment with anti-inflammatories, muscle relaxers as needed --Orthopedic surgery recommending patient set up for outpatient PT with weightbearing as tolerated, avoid bending, twisting and lifting; patient can be discharged tomorrow and will follow-up with orthopedic surgery as an outpatient 12/21/2023 Patient remains with back pain, she rated about 5/10 in severity She has a brace Patient currently has been evaluated by surgical team for possible surgical spine stabilization versus kyphoplasty Will continue monitoring Objective - Vital Signs Vital signs: Vital Signs Temp 97.5 F L 12/21/23 11:52 Pulse 102 H 12/21/23 11:52 Resp 18 12/21/23 11:52 BP 143/68 12/21/23 11:52 Pulse Ox 97 12/21/23 11:52 FiO2 Intake & Output 12/20/23 12/21/23 12/21/23 18:59 06:59 18:59 Other: Voiding Method Bedside Commode Bedside Commode External Catheter External Catheter # Voids 3 1 1 - Exam GENERAL: The patient is alert and oriented x3, not in any acute distress. Well developed, well nourished. HEENT: Pupils are round and equally reacting to light. EOMI. No scleral icterus. No conjunctival pallor. Normocephalic, atraumatic. No pharyngeal erythema. No thyromegaly. CARDIOVASCULAR: S1 and S2 present. No murmurs, rubs, or gallops. PULMONARY: Chest is clear to auscultation, no wheezing , no crackles. ABDOMEN: Soft, nontender, nondistended, normoactive bowel sounds. No palpable organomegaly. MUSCULOSKELETAL: No joint swelling or deformity. EXTREMITIES: No cyanosis, clubbing, or pedal edema. NEUROLOGICAL: Gross neurological examination did not reveal any focal deficits. SKIN: No rashes. no petechiae. - Labs CBC & Chem 7: 12/19/23 06:20 12/19/23 06:20 Assessment and Plan Assessment: 1. Fall with compression fracture of T12 vertebra on CT of thoracic spine --X-ray of thoracic spine reveals L1 vertebral body fracture with 25% height loss which is indeterminate age -- Patient has been evaluated by orthopedic surgery; no emergent orthopedic surgical intervention is recommended -- LSO brace is ordered -Pain control with anti-inflammatory medications, muscle relaxers and low-dose oral narcotics -- PT/OT is consulted with weightbearing as tolerated, avoid bending, twisting and lifting --Patient has been evaluated by surgical team for T10-L1 posterior stabilization versus kyphoplasty by orthopedic team 2. Mild JESSICA; BUN slightly elevated at 30 with creatinine normal at 0.65; patient is encouraged to increase fluid intake DVT prophylaxis; SCDs/subcu heparin CODE STATUS; full code
--- NOTE | 2023-12-22 20:19 | P.PN ---
Subjective Progress Note Date: 12/22/23 Principal diagnosis: T12 A3 burst fracture Right sacral alar fracture, old Low back pain Difficulty with ambulation Patient was evaluated today at bedside, she is resting in her hospital bed. Dr. Escobar was available today at bedside to discuss treatment options for patient. With patient's current medical state, her difficulty with ambulation and continuing pain we are recommending surgical intervention. This was discussed at bedside at length with the patient today, she is in good understanding would like to proceed. She currently has no headaches, lightheadedness, chest pain or shortness of breath Objective - Vital Signs Vital signs: Vital Signs Temp 98.1 F 12/22/23 19:45 Pulse 90 12/22/23 19:45 Resp 16 12/22/23 12:29 BP 138/87 12/22/23 19:45 Pulse Ox 94 L 12/22/23 19:45 FiO2 Intake & Output 12/22/23 12/22/23 12/23/23 06:59 18:59 06:59 Intake Total 100 240 Balance 100 240 Intake: Oral 100 240 Other: # Voids 3 - Exam Gen: AOx3, NAD VSS stable at this time Integument: No open lesions or sores are visualized throughout the lumbar spine Palpation: Tenderness with palpation is noted both midline and paraspinal region of the lumbar spine. Patient demonstrates no point tenderness to the bilateral lower extremity ROM: full range of motion in all major muscle groups of the bilateral upper and lower extremities, no focal deficits appreciated Sensory Exam: Senory exam to light touch is intact C5-T1 Senosry exam to light touch is intact L2-S1 Motor: 4+/5 strength appreciated the bilateral lower extremities with hip flexion 5/5 strength appreciated in the bilateral lower extremities with knee extension, knee flexion, plantarflexion, dorsiflexion, EHL, FHL Reflexes: 2/4 in all UE and LE negative clonus bilaterally, negative Babinski bilaterally - Labs CBC & Chem 7: 12/19/23 06:20 12/19/23 06:20 Assessment and Plan Assessment: Low back pain T12 A3 burst fracture Right-sided sacral alar fracture, old Difficulty with ambulation Other medical comorbidities Plan: After discussion today with the patient and Dr. Escobar, we are planning for surgical intervention on 12/24/2023. We plan to proceed with a open fracture treatment of T12 with posterior stabilization from T11-L1. Risk and benefits of the procedure were discussed with the patient, this to include but not exclude infection, blood loss, development of blood clots, further worsening of s ymptoms, and adequate healing of bone, need for further surgery. Patient is in good understanding would like to proceed. Pain control, continue with current medications PT/OT recommendation, weight-bear as tolerated, avoid bending, twisting and lifting DVT prophylaxis per primary medical service Other medical specialty recommendations appreciated Continue to follow during hospital stay Time with Patient: Less than 30
--- NOTE | 2023-12-22 21:54 | P.PN ---
Subjective 63-year-old female, with history of colon cancer in 2008, and vitamin D deficiency presents emergency department via EMS accompanied by her for chief complaint of a fall on Thursday. Patient states that she was getting up in the middle the night to use the restroom, dizziness from standing up too quickly, when she went to reach for the bedroom door with a pulling sensation in her back while she fell to the ground on her right-hand side. It has been having difficulty ambulating over the last few days due to pain and tenderness of her spine. Patient denies loss of bladder or bowel continence or saddle anesthesias. Patient denies paresthesias to bilateral lower extremities, and has full range of motion intact of her lower extremities. Has been taking Tylenol Motrin at home with minimal relief. Has a history of a pelvic fracture which occurred last year, patient was treated conservatively. X-ray of the thoracic spine is unremarkable X-ray of lumbar spine reveals indeterminate compression deformity of L1 vertebra with 25% height loss CT of the lumbar spine reveals moderate compression fraction of T12 with 10 to 15% retropulsion 12/20/2023 Patient is seen and evaluated resting in bed; reports she was able to ambulate with LSO brace Vital signs are reviewed and stable with temperature 97.9, pulse 73, respirations 16 and blood pressure of 141/72 O2 saturation 94% on room air Patient is admitted post fall with T12 burst fracture Orthopedic surgery on board and recommending to continue with conservative treatment with anti-inflammatories, muscle relaxers as needed --Orthopedic surgery recommending patient set up for outpatient PT with weightbearing as tolerated, avoid bending, twisting and lifting; patient can be discharged tomorrow and will follow-up with orthopedic surgery as an outpatient 12/21/2023 Patient remains with back pain, she rated about 5/10 in severity She has a brace Patient currently has been evaluated by surgical team for possible surgical spine stabilization versus kyphoplasty Will continue monitoring 12/22/2023 Patient is currently lying in bed with no specific symptom. She is not in distress. Pain controlled She is pending open fracture treatment of T12 with posterior stabilization from T11-L1 on Objective - Vital Signs Vital signs: Vital Signs Temp 98.1 F 12/22/23 19:45 Pulse 90 12/22/23 19:45 Resp 16 12/22/23 12:29 BP 138/87 04/02/24 19:45 Pulse Ox 94 L 12/22/23 19:45 FiO2 Intake & Output 12/22/23 12/22/23 12/23/23 06:59 18:59 06:59 Intake Total 100 240 Balance 100 240 Intake: Oral 100 240 Other: # Voids 3 - Exam GENERAL: The patient is alert and oriented x3, not in any acute distress. Well developed, well nourished. HEENT: Pupils are round and equally reacting to light. EOMI. No scleral icterus. No conjunctival pallor. Normocephalic, atraumatic. No pharyngeal erythema. No thyromegaly. CARDIOVASCULAR: S1 and S2 present. No murmurs, rubs, or gallops. PULMONARY: Chest is clear to auscultation, no wheezing , no crackles. ABDOMEN: Soft, nontender, nondistended, normoactive bowel sounds. No palpable organomegaly. MUSCULOSKELETAL: No joint swelling or deformity. EXTREMITIES: No cyanosis, clubbing, or pedal edema. NEUROLOGICAL: Gross neurological examination did not reveal any focal deficits. SKIN: No rashes. no petechiae. - Labs CBC & Chem 7: 12/19/23 06:20 12/19/23 06:20 Assessment and Plan Assessment: 1. Fall with compression fracture of T12 vertebra on CT of thoracic spine --X-ray of thoracic spine reveals L1 vertebral body fracture with 25% height loss which is indeterminate age -- Patient has been evaluated by orthopedic surgery; no emergent orthopedic s urgical intervention is recommended -- LSO brace is ordered -Pain control with anti-inflammatory medications, muscle relaxers and low-dose oral narcotics -- PT/OT is consulted with weightbearing as tolerated, avoid bending, twisting and lifting --Patient has been evaluated by surgical team for T10-L1 posterior stabilization versus kyphoplasty by orthopedic team on 12/23 2. Mild JESSICA; BUN slightly elevated at 30 with creatinine normal at 0.65; patient is encouraged to increase fluid intake DVT prophylaxis; SCDs/subcu heparin CODE STATUS; full code
[2023-12-23] MEDS: HEPARIN SODIUM,PORCINE 5,000 UNIT/ML 1 ML VIAL SQ SCH (01:00)
--- NOTE | 2023-12-23 10:20 | P.PN ---
Subjective Progress Note Date: 12/23/23 Principal diagnosis: T12 A3 burst fracture Right sacral alar fracture, old Low back pain Difficulty with ambulation Patient was evaluated today at bedside, she is resting in her hospital bed. Patient is eager for her surgery tomorrow. Her symptoms remain about baseline at this time. She currently has no headaches, lightheadedness, chest pain or shortness of breath Objective - Vital Signs Vital signs: Vital Signs Temp 97.9 F 12/23/23 07:17 Pulse 88 12/23/23 07:17 Resp 16 12/23/23 07:17 BP 130/79 12/23/23 07:17 Pulse Ox 91 L 12/23/23 07:17 FiO2 Intake & Output 12/22/23 12/23/23 12/23/23 18:59 06:59 18:59 Intake Total 240 Output Total 0 Balance 240 0 Intake: Oral 240 Output: Urine 0 Other: Voiding Method Bedside Commode Bedside Commode External Catheter External Catheter # Voids 3 - Exam Gen: AOx3, NAD VSS stable at this time Integument: No open lesions or sores are visualized throughout the lumbar spine Palpation: Tenderness with palpation is noted both midline and paraspinal region of the lumbar spine. Patient demonstrates no point tenderness to the bilateral lower extremity ROM: full range of motion in all major muscle groups of the bilateral upper and lo wer extremities, no focal deficits appreciated Sensory Exam: Senory exam to light touch is intact C5-T1 Senosry exam to light touch is intact L2-S1 Motor: 4+/5 strength appreciated the bilateral lower extremities with hip flexion 5/5 strength appreciated in the bilateral lower extremities with knee extension, knee flexion, plantarflexion, dorsiflexion, EHL, FHL Reflexes: 2/4 in all UE and LE negative clonus bilaterally, negative Babinski bilaterally - Labs CBC & Chem 7: 12/19/23 06:20 12/19/23 06:20 Assessment and Plan Assessment: Low back pain T12 A3 burst fracture Right-sided sacral alar fracture, old Difficulty with ambulation Other medical comorbidities Plan: Planning for surgery for 12/24/2023 N.p.o. after midnight Continue use of LSO brace when up and ambulating Pain control, continue with current medications PT/OT recommendation, weight-bear as tolerated, avoid bending, twisting and lifting DVT, hold blood thinners today Other medical specialty recommendations appreciated Continue to follow during hospital stay Time with Patient: Less than 30
--- NOTE | 2023-12-23 12:40 | P.PN ---
Subjective 63-year-old female, with history of colon cancer in 2008, and vitamin D deficiency presents emergency department via EMS accompanied by her for chief complaint of a fall on Thursday. Patient states that she was getting up in the middle the night to use the restroom, dizziness from standing up too quickly, when she went to reach for the bedroom door with a pulling sensation in her back while she fell to the ground on her right-hand side. It has been having difficulty ambulating over the last few days due to pain and tenderness of her spine. Patient denies loss of bladder or bowel continence or saddle anesthesias. Patient denies paresthesias to bilateral lower extremities, and has full range of motion intact of her lower extremities. Has been taking Tylenol Motrin at home with minimal relief. Has a history of a pelvic fracture which occurred last year, patient was treated conservatively. X-ray of the thoracic spine is unremarkable X-ray of lumbar spine reveals indeterminate compression deformity of L1 vertebra with 25% height loss CT of the lumbar spine reveals moderate compression fraction of T12 with 10 to 15% retropulsion 12/20/2023 Patient is seen and evaluated resting in bed; reports she was able to ambulate with LSO brace Vital signs are reviewed and stable with temperature 97.9, pulse 73, respirations 16 and blood pressure of 141/72 O2 saturation 94% on room air Patient is admitted post fall with T12 burst fracture Orthopedic surgery on board and recommending to continue with conservative treatment with anti-inflammatories, muscle relaxers as needed --Orthopedic surgery recommending patient set up for outpatient PT with weightbearing as tolerated, avoid bending, twisting and lifting; patient can be discharged tomorrow and will follow-up with orthopedic surgery as an outpatient 12/21/2023 Patient remains with back pain, she rated about 5/10 in severity She has a brace Patient currently has been evaluated by surgical team for possible surgical spine stabilization versus kyphoplasty Will continue monitoring 12/22/2023 Patient is currently lying in bed with no specific symptom. She is not in distress. Pain controlled She is pending open fracture treatment of T12 with posterior stabilization from T11-L1 on 12/23/2023 No new complaint No chest pain or dyspnea Patient is pending surgical intervention tomorrow with orthopedic team Objective - Vital Signs Vital signs: Vital Signs Temp 97.9 F 12/23/23 07:17 Pulse 88 12/23/23 07:17 Resp 16 12/23/23 07:17 BP 130/79 12/23/23 07:17 Pulse Ox 91 L 12/23/23 07:17 FiO2 Intake & Output 12/22/23 12/23/23 12/23/23 18:59 06:59 18:59 Intake Total 240 Output Total 0 Balance 240 0 Intake: Oral 240 Output: Urine 0 Other: Voiding Method Bedside Commode Bedside Commode External Catheter External Catheter # Voids 3 - Exam GENERAL: The patient is alert and oriented x3, not in any acute distress. Well developed, well nourished. HEENT: Pupils are round and equally reacting to light. EOMI. No scleral icterus. No conjunctival pallor. Normocephalic, atraumatic. No pharyngeal erythema. No thyromegaly. CARDIOVASCULAR: S1 and S2 present. No murmurs, rubs, or gallops. PULMONARY: Chest is clear to auscultation, no wheezing , no crackles. ABDOMEN: Soft, nontender, nondistended, normoactive bowel sounds. No palpable organomegaly. MUSCULOSKELETAL: No joint swelling or deformity. EXTREMITIES: No cyanosis, clubbing, or pedal edema. NEUROLOGICAL: Gross neurological examination did not reveal any focal deficits. SKIN: No rashes. no petechiae. - Labs CBC & Chem 7: 12/19/23 06:20 12/19/23 06:20 Assessment and Plan Assessment: 1. Fall with compression fracture of T12 vertebra on CT of thoracic spine --X-ray of thoracic spine reveals L1 vertebral body fracture with 25% height loss which is indeterminate age -- Patient has been evaluated by orthopedic surgery; no emergent orthopedic surgical intervention is recommended -- LSO brace is ordered -Pain control with anti-inflammatory medications, muscle relaxers and low-dose oral narcotics -- PT/OT is consulted with weightbearing as tolerated, avoid bending, twisting and lifting --Patient has been evaluated by surgical team for T10-L1 posterior stabilization versus kyphoplasty by orthopedic team on 12/23 2. Mild EJSSICA; BUN slightly elevated at 30 with creatinine normal at 0.65; patient is encouraged to increase fluid intake DVT prophylaxis; SCDs/subcu heparin CODE STATUS; full code
[2023-12-24] MEDS: HYDROmorphone 0.5 MG/0.5 ML SYRINGE IVP PRN ×2 (09:15→16:46)
--- NOTE | 2023-12-24 09:34 | P.PN ---
Progress Note - Text Progress Note Date: 12/24/23 Spine Surgery Clinical and Risk Review Grace Ashford is a 63 yo female presenting for evaluation of severe low back pain after a fall at home. It was my pleasure to have seen and examined Grace Ashford. In our visit today we have had a chance to go over subjective complaints, physical examination findings and treatments including the natural course history without intervention and various interventional options. The patients imaging demonstrates T12 8 oh 83-type burst fracture with extension to the right-sided pedicle inferior surface. There is superior and inferior endplate involvement as well as posterior element involvement.. On physical exam,Grace Ashford demonstrates severe tenderness to palpation of the region midline as well as paraspinal.. I have explained to the patient that as their condition progresses it will cause further neurological deficits and eventual paralysis. Based on the patients imaging, physical exam, and the rapid progression and disabling nature of their symptoms, at this time I recommend surgery in the form or a: Open treatment T12 fracture with T11-L1 stabilization. I discussed the risk and benefits of this procedure at length with Grace Ashford. The patient agreed to considered pursuing the procedure abovementioned. Prior to surgery, she should follow up with her PCP (Cardio, ID, IM etc) for clearance. Questions were invited and answered, and the patient wishes to proceed as outlined below. Currently, I am recommendin. Open treatment T12 fracture with T11-L1 stabilization 2. Follow up with PCP for surgical clearance 3. Review of surgical risks and benefits as well as an educational packet on the proposed surgical procedure. Risks: All surgical procedures come with inherent risks, including those related to positioning, anesthesia, intraoperative findings, and postoperative complications. It is important to understand that surgery does not come with any guarantee of a successful outcome as complications and adverse events are always possible. The patient was given a handout in office today discussing the surgical procedure and risks associated with the intervention, both of which were discussed with the patient. These risks include but are not limited to the following: * Experiencing same, different or even worse symptoms in back, neck, arms, or legs compared to before surgery. * Requiring further surgery or other forms of treatment presently or at some time in the future at same or other levels of the intended spine surgery. * On an extreme but fortunately relatively rare basis severe complication such as blindness, stroke, heart attack, temporary and/or permanent nerve injury, paralysis, coma, or may occur, sometimes without known explanation. * Surgical complications may include but are not limited to risk of infection, fluid accumulation in the surgical dissection site, including a seroma or hematoma, that requires additional surgery, wound drainage, bleeding, new numbness or weakness, vision changes/loss, spinal fluid leakage, non-healing and/or infected incision, headaches, difficulty or inability to swallow, hoarseness, hemopneumothorax, pneumothorax, impotence, retrograde ejaculation, vaginal dryness; injury to nerves, spinal cord, blood vessels, lymphatics or other vital organs (i.e., bowel injury, injury to the great vessels); heterotopic bone formation; complications related to the hardware such as screws, rods, cages including misplaced hardware, device failure, instrumentation at the wrong spine level, hardware fracture/breakage, or hardware loosening; vertebral failure of the spinal column above or below the newly placed hardware; retained surgical instrumentations or devices and the need for further surgery. * Medical risks of the planned spine surgery include but are not limited to generalized Infections to the whole body or local areas outside of the surgical site (sepsis), heart attack, bleeding, anaphylaxis, meningitis, seizure, epilepsy, hearing loss, burn perez, laceration of the head or other areas of the body, bruising, hypersensitivity of the skin, bladder over distension; allergic reaction; shoulder injury related to positioning; fat, blood and air clots to other areas of the body like heart, lungs, brain; failure of internal organs such as lungs, kidneys, liver and excessive bleeding. If blood transfusions are necessary, note that transfusions may cause intolerance reactions such as anaphylaxis or other complex reactions. * Despite best efforts, the results of spine surgery might not heal in terms of bone, soft tissues such as skin, fascia, ligaments, and joints. Additionally, in order to achieve best possible results, spine surgery may be carried out beyond the initially planned levels and involve decompression, fusion includ ing insertion of hardware at levels other than the original intended area of surgical interest change some portions of the procedure in order to ensure the best possible outcomes. * With spine surgery and spinal fusion, there are different off label uses of instrumentation (devices, implants and hardware) as well as biological substances (bone morphogenic proteins, demineralized bone matrix) as well as using extra bone from allograft sources (i.e. cadaver bone) or autograft (iliac crest bone, ribs, or the spine itself). The patient has been given information about these practices and their inherent risks and benefits. The patient has had a chance to review all the listed information, has been given print outs detailing this information, and has had all his/her questions answered to their satisfaction. It was my pleasure to have seen and examined Grace Ashford. In our visit today we have had a chance to go over my understanding of our patient's current condition, the natural course history without intervention and various interventional options. Questions were invited and answered, and the patient wishes to proceed as outlined above. I have seen and examined the patient for 25 minutes and we have spent more than 50% of the time in repeat and detailed counseling about the patient's condition, its natural course history with out and as much as can be predicted with surgery and re-review of various surgical treatment options. In conclusion, Grace Ashford and requested we proceed with the above suggested surgery and are willing to accept risks and limitations of the suggested surgery as nature of the disease process and our best attempts at treatment for the condition. Thank you again for allowing us to be part of your patient's care. Please don't hesitate to contact me if you have any further questions. Signed and authenticated by: Gabe Sloan [facility] [address] [place] [address] [address]
--- NOTE | 2023-12-24 11:25 | P.PN ---
Subjective 63-year-old female, with history of colon cancer in 2008, and vitamin D deficiency presents emergency department via EMS accompanied by her for chief complaint of a fall on Thursday. Patient states that she was getting up in the middle the night to use the restroom, dizziness from standing up too quickly, when she went to reach for the bedroom door with a pulling sensation in her back while she fell to the ground on her right-hand side. It has been having difficulty ambulating over the last few days due to pain and tenderness of her spine. Patient denies loss of bladder or bowel continence or saddle anesthesias. Patient denies paresthesias to bilateral lower extremities, and has full range of motion intact of her lower extremities. Has been taking Tylenol Motrin at home with minimal relief. Has a history of a pelvic fracture which occurred last year, patient was treated conservatively. X-ray of the thoracic spine is unremarkable X-ray of lumbar spine reveals indeterminate compression deformity of L1 vertebra with 25% height loss CT of the lumbar spine reveals moderate compression fraction of T12 with 10 to 15% retropulsion 12/20/2023 Patient is seen and evaluated resting in bed; reports she was able to ambulate with LSO brace Vital signs are reviewed and stable with temperature 97.9, pulse 73, respirations 16 and blood pressure of 141/72 O2 saturation 94% on room air Patient is admitted post fall with T12 burst fracture Orthopedic surgery on board and recommending to continue with conservative treatment with anti-inflammatories, muscle relaxers as needed --Orthopedic surgery recommending patient set up for outpatient PT with weightbearing as tolerated, avoid bending, twisting and lifting; patient can be discharged tomorrow and will follow-up with orthopedic surgery as an outpatient 12/21/2023 Patient remains with back pain, she rated about 5/10 in severity She has a brace Patient currently has been evaluated by surgical team for possible surgical spine stabilization versus kyphoplasty Will continue monitoring 12/22/2023 Patient is currently lying in bed with no specific symptom. She is not in distress. Pain controlled She is pending open fracture treatment of T12 with posterior stabilization from T11-L1 on 12/23/2023 No new complaint No chest pain or dyspnea Patient is pending surgical intervention tomorrow with orthopedic team 12/24/2023 Patient awake alert She denies chest pain or dyspnea. No GI or abdominal complaints. Her abdomen soft Patient and at bedside all questions answered Patient is going for orthopedic procedure today for open fracture treatment of T12 with posterior stabilization from T11-L1 on Objective - Vital Signs Vital signs: Vital Signs Temp 97.9 F 12/24/23 07:12 Pulse 78 12/24/23 07:12 Resp 16 12/24/23 07:12 BP 154/80 12/24/23 07:12 Pulse Ox 95 12/24/23 07:12 FiO2 Intake & Output 12/23/23 12/24/23 12/24/23 18:59 06:59 18:59 Intake Total 0 Output Total 0 Balance 0 Intake: Oral 0 Output: Urine 0 Other: Voiding Method Bedside Commode Bedside Commode External Catheter External Catheter # Voids 3 0 - Exam GENERAL: The patient is alert and oriented x3, not in any acute distress. Well developed, well nourished. HEENT: Pupils are round and equally reacting to light. EOMI. No scleral icterus. No conjunctival pallor. Normocephalic, atraumatic. No pharyngeal erythema. No thyromegaly. CARDIOVASCULAR: S1 and S2 present. No murmurs, rubs, or gallops. PULMONARY: Chest is clear to auscultation, no wheezing , no crackles. ABDOMEN: Soft, nontender, nondistended, normoactive bowel sounds. No palpable organomegaly. MUSCULOSKELETAL: No joint swelling or deformity. EXTREMITIES: No cyanosis, clubbing, or pedal edema. NEUROLOGICAL: Gross neurological examination did not reveal any focal deficits. SKIN: No rashes. no petechiae. - Labs CBC & Chem 7: 12/19/23 06:20 12/19/23 06:20 Assessment and Plan Assessment: 1. Fall with compression fracture of T12 vertebra on CT of thoracic spine --X-ray of thoracic spine reveals L1 vertebral body fracture with 25% height loss which is indeterminate age -- Patient has been evaluated by orthopedic surgery; no emergent orthopedic surgical intervention is recommended -- LSO brace is ordered -Pain control with anti-inflammatory medications, muscle relaxers and low-dose oral narcotics -- PT/OT is consulted with weightbearing as tolerated, avoid bending, twisting and lifting --Patient has been evaluated by surgical team for T10-L1 posterior stabilization versus kyphoplasty by orthopedic team on 12/23 2. Mild JESSICA; BUN slightly elevated at 30 with creatinine normal at 0.65; patient is encouraged to increase fluid intake DVT prophylaxis; SCDs/subcu heparin CODE STATUS; full code
[2023-12-24] MEDS ORDERED: ONDANSETRON 4 MG/2 ML VIAL ONE (12:28)
[2023-12-24] MEDS: DEXAMETHASONE SOD PHOSPHATE 4 MG/ML 1 ML VIAL IVP ONE (12:30)
[2023-12-24] MEDS: LACTATED RINGERS 1,000 ML IV ONE ×2 (12:30→13:53)
[2023-12-24] MEDS: ONDANSETRON 4 MG/2 ML VIAL IVP ONE ×2 (12:30→17:59)
[2023-12-24] MEDS ORDERED: LIDOCAINE 1% INJ 10MG/ML (20 ML MDV) ONE (13:49)
[2023-12-24] MEDS ORDERED: PROPOFOL 10 MG/ML 20 ML VIAL IV ONE (13:49)
[2023-12-24] MEDS ORDERED: ROCURONIUM 10 MG/ML (5 ML VIAL) IV ONE (13:49)
[2023-12-24] MEDS ORDERED: MIDAZOLAM 2 MG/2 ML VIAL ONE (13:49)
[2023-12-24] MEDS ORDERED: fentaNYL (PF) 50 MCG/ML 2 ML AMP ONE (13:49)
[2023-12-24] MEDS ORDERED: PHENYLEPHRINE 10 MG/ML VIAL ONE (13:49)
[2023-12-24] MEDS ORDERED: SUCCINYLCHOLINE CHLORIDE 200 MG/10 ML VIAL IV ONE (13:49)
[2023-12-24] MEDS ORDERED: TRANEXAMIC 1,000 MG/100ML-NACL PREMIX BAG ONE (13:49)
[2023-12-24] MEDS ORDERED: HYDROmorphone (PF) 1 MG/ML ONE (13:49)
[2023-12-24] MEDS: LIDOCAINE 2%-EPI 1:100,000 20 ML VIAL SQ ONE ×2 (14:39→15:33)
[2023-12-24] MEDS: IOPAMIDOL M200 10 ML VIAL MISCELLANE ONE (14:39)
[2023-12-24] MEDS: BUPIVACAINE (PF) 0.5% 30 ML VIAL SQ ONE ×2 (14:39→15:33)
[2023-12-24] MEDS ORDERED: HYDROmorphone 0.5 MG/0.5 ML SYRINGE IVP PRN (15:44)
[2023-12-24] MEDS ORDERED: SENNOSIDES-DOCUSATE SODIUM 1 EACH TAB PO PRN (15:44)
[2023-12-24] MEDS ORDERED: HYDROcodone/APAP 5-325MG 1 EACH TAB PO PRN (15:44)
[2023-12-24] MEDS ORDERED: MAGNESIUM HYDROXIDE 2,400 MG/30 ML CUP PO PRN (15:44)
[2023-12-24] MEDS ORDERED: MIDAZOLAM 2 MG/2 ML VIAL IV PRN (16:05)
[2023-12-24] MEDS ORDERED: LIDOCAINE 1% (10MG/ML) FOR IV START INTRADERMA PRN (16:05)
--- NOTE | 2023-12-24 16:08 | FL ---
EXAMINATION TYPE: FL guidance operating room, XR lumbar spine 2 or 3V Intraoperative/procedural fluor oscopic services were provided. Total fluoroscopy time is 1 minute for seconds with a total of 5 subm itted images to PACS. Please see the operative/procedural note for further details. DAP: 1467 cGycm2
--- NOTE | 2023-12-24 16:11 | P.OP ---
Date of Procedure: 12/24/23 Preoperative Diagnosis: 1. T12 AO TYPE A3 BURST FRACTURE WITH PEDICLE INVOLVEMENT 2. MID BACK PAIN 3. S/P FFS 4. COMPLEX MEDICAL PATIENT Postoperative Diagnosis: 1. T12 AO TYPE A3 BURST FRACTURE WITH PEDICLE INVOLVEMENT 2. MID BACK PAIN 3. S/P FFS 4. COMPLEX MEDICAL PATIENT Procedure(s) Performed: 1. OPEN TREATMENT AND REDUCTION OF T12 FRACTURE (81254) 2. STABILIZATION T12 FRACTURE T11-L1 INSTRUMENTATION (45919) 3. INSERTION OF INTERVERTEBRAL BIOMECHANICAL DEVICE, SPINE REENA, X2 T12 VERTEBRAL BODY FOR REDUCTION AND STABILIZATION OF FRACTURE (04716) 4. USE OF ASHLEIGH NAVIGATION FOR SCREW AND REENA PLACEMENT (24371) USE OF IONM ALL SCREWS TESTING > 20 mA Implants: -ASHLEIGH EVEREST RODS AND SCREW SYSTEM -SPINE REENA, MEDIUM, ASHLEIGH Anesthesia: GETA Surgeon: Gabe Escobar Salesperson Hosiery #1: Heriberto Kim (WAS PRESENT AND ASSISTED WITH ALL ASPECTS OF THE CASE FROM POSITION TO CLOSURE. ) Estimated Blood Loss (ml): 75 IV fluids (ml): 1,300 Urine output (ml): 250 Pathology: none sent Condition: stable Disposition: PACU Indications for Procedure: Grace Ashford is a 63 yo female presenting for evaluation of severe low back pain after a fall at home. It was my pleasure to have seen and examined Grace Ashford. In our visit today we have had a chance to go over subjective complaints, physical examination findings and treatments including the natural course history without intervention and various interventional options. The patients imaging demonstrates T12 8 oh 83-type burst fracture with extension to the right-sided pedicle inferior surface. There is superior and inferior endplate involvement as well as posterior element involvement.. On physical exam,Grace Ashford demonstrates severe tenderness to palpation of the region midline as well as paraspinal.. I have explained to the patient that as their condition progresses it will cause further neurological deficits and eventual paralysis. Based on the patients imaging, physical exam, and the rapid progression and disabling nature of their symptoms, at this time I recommend surgery in the form or a: Open treatment T12 fracture with T11-L1 stabilization. I discussed the risk and benefits of this procedure at length with Grace Ashford. The patient agreed to considered pursuing the procedure abovementioned. Prior to surgery, she should follow up with her PCP (Cardio, ID, IM etc) for clearance. Questions were invited and answered, and the patient wishes to proceed as outlined below. Currently, I am recommendin. Open treatment T12 fracture with T11-L1 stabilization Description of Procedure: ORIF T12, T121-L1, SPINE REENA The patient was seen and examined in the preoperative area. All preoperative protocols were followed. Informed consent was obtained, risks and benefits of the procedure were discussed at length. Risks including bleeding infection damage to the surrounding tissue and risk of reoperation were discussed with the patient. Risk of anesthesia up to and including was discussed with the patient. These are outlined in the risk review. They were willing to accept these risks and all of the risks of surgery. The patient was given a weight- based dose of antibiotics in the form of 2 g Ancef. The patient was seen and evaluated by the anesthesia team who deemed them fit for surgery. The site was marked, the patient was willing to proceed with the procedure. The patient was transferred to the operative suite by the Department of anesthesia. They were then drifted off to sleep by the department anesthesia and GETA was performed. The patient tolerated this well. [Weston catheter was placed by nursing staff, atraumatically]. Once confirmation of lines and ventilation the patient was transferred to a [prone Rey table very carefully]. All bony prominences including wrists, elbows, axilla, chest, hips, and thighs, and feet were padded very well. Special attention was paid to the genitalia and these were padded accordingly. SCDs were placed on bilateral lower extremities and were connected. Arms were well padded and placed [on arm boards up and out in the 90/90 position]. Once in position, again we confirmed good ventilation capabilities and that lines were running appropriately. The patient's thoracolumbar spine was then exposed. 1010s were placed outlining the incision site. Standard alcohol was used to clean the incision site and allowed to dry. C-arm was used to needle localize T12 and then biomark the patient and confirm level for incision which was marked with a skin marker. Operative briefing was performed with all teams and everyone in agreement to proceed. The patient was then prepped and draped in a normal sterile fashion. Timeout was then performed and all parties were in agreement with the procedure to be performed. MIdline skin incision was made over the T12 region and subperiosteal dissection taken down over the SP and partial lamina of T12. Ashleigh navigation clamp was then placed on the SP and secured. 3D Zhiem spin was then obtained and registered of the area and confirmed to be accurate. Once this was confirmed, navigated Jamshidi was used to access pedicles b/l at T11 T12 and L1. This allowed wires to be placed for screw tracts and the spine reena. Once wires were in place, they were confirmed to be in good position on AP and LAT images. We then placed screws over these wires at T11 b/l and then L1 b/l. Screws were secured and had good purchase. They were then confirmed to be in good position on AP and LAT images. The Jamshidi for the Spine Reena was then placed over the wire at T12 and a wire exchange done. Then the Spine Reena system was used to drill, trial and fit a Spine Reena b/l at T12. Once in good position the Jacks were expanded under lateral imaging simultaneously until there was reduction and anabaptism of height and VB morphology at T12. Once this was accomplished, cement was placed into this region under lateral imaging and had good fill of both the VB and the Spine Reena. The inserters were then removed and calipers used to measure eliza length. Rods were then selected and bent appropriately and placed subfacially through MIS tabs in the screws. Set screws were then placed and rods seated in screw heads. The set screws were then final tightened. Tabs were then broken off and final images confirmed good placement of hardware, good reduction of fracture with alignment anabaptism. The wounds were then copiously irrigated with normal sterile saline. Local was placed in the wounds. The wounds were closed with 0 Vicryl in deep fascia 2-0 Vicryl superficial subcu and neli in skin. Wound edges approximated very well. Wound was then cleaned and dressed sterilely with an operative foam dressing. The patient was transferred back to their hospital bed atraumatically. Patient was then awakened and extubated by the department of anesthesia having tolerated the procedure very well with no complications. Drain continued to hold suction. They were transferred to the postoperative care unit in stable condition.
[2023-12-24] MEDS: ENALAPRILAT 1.25 MG/ML 1 ML VIAL IVP ONE (16:27)
[2023-12-24] MEDS: TRANEXAMIC ACID 1,000 MG in SODIUM CHLORIDE 0.9% 100 ML IVPB ONE (17:56)
[2023-12-24] MEDS: DEXAMETHASONE SOD PHOSPHATE 4 MG/ML 1 ML VIAL IV ONE (17:58)
[2023-12-24] MEDS: LACTATED RINGERS 1,000 ML IV SCH (17:59)
[2023-12-24] MEDS: HYDROmorphone 1 MG/ML 1 ML SYRINGE IVP PRN (21:37)
[2023-12-25] MEDS: CYCLOBENZAPRINE 5 MG TAB PO PRN (04:48)
[2023-12-25 08:50] LABS: Basophils # (A) 0.02 X 10*3/uL (0.00-0.10); Basophils % (A) 0.2 %; Eosinophils # (A) 0.01 X 10*3/uL (0.04-0.35); Eosinophils % (A) 0.1 %; HCT 38.2 % (37.2-46.3); HGB 12.4 g/dL (12.0-15.0); Lymphocytes # (A) 1.07 X 10*3/uL (0.90-5.00); Lymphocytes % (A) 10.1 %; MCH 35.6 pg (27.0-32.0); MCHC 32.5 g/dL (32.0-37.0); MCV 109.8 FL (80.0-97.0); Monocytes # (A) 1.23 X 10*3/uL (0.20-1.00); Monocytes % (A) 11.6 %; NRBC Per 100 WBC 0 X 10*3/uL (0.00-0.01); Neutrophils % (A) 77.1 %; Platelet Count 285 X 10*3/uL (140-440); RBC 3.48 X 10*6/uL (4.10-5.20); RDW 12.5 % (11.5-14.5); WBC 10.63 X 10*3/uL (4.50-10.00)
[2023-12-25 09:04] LABS: BUN/Creat Ratio 31.33 Ratio (12.00-20.00); Blood Urea Nitrogen 18.8 mg/dL (9.0-27.0); Calcium 8.9 mg/dL (8.7-10.3); Carbon Dioxide 25.7 mmol/L (21.6-31.8); Chloride 101 mmol/L (96-109); Glucose 87 mg/dL (70-110); Potassium 4.5 mmol/L (3.5-5.5); Sodium 139 mmol/L (135-145)
--- NOTE | 2023-12-25 12:19 | P.PN ---
Subjective Progress Note Date: 12/25/23 Principal diagnosis: T12 A3 burst fracture Right sacral alar fracture, old Low back pain Difficulty with ambulation Patient was evaluated today at bedside, she is resting in her hospital bed. Patient has not been out of bed yet, the urinary catheter is present. She states that she is having some generalized discomfort in the low back region.She currently has no headaches, lightheadedness, chest pain or shortness of breath Objective - Vital Signs Vital signs: Vital Signs Temp 98.3 F 12/25/23 07:20 Pulse 107 H 12/25/23 07:20 Resp 17 12/25/23 07:20 BP 159/84 12/25/23 07:20 Pulse Ox 94 L 12/25/23 07:20 FiO2 Intake & Output 12/24/23 12/25/23 12/25/23 18:59 06:59 18:59 Intake Total 900 Output Total 175 600 Balance 725 -600 Intake: IV 900 Output: Urine 100 600 Estimated Blood Loss 75 Other: Voiding Method Bedside Commode Bedside Commode External Catheter # Voids 0 - Exam Gen: AOx3, NAD VSS stable at this time Integument: Postop dressings are in good position and condition, no active drainage Palpation: Tenderness with palpation is noted both midline and paraspinal region of the lumbar spine. Patient demonstrates no point tenderness to the bilateral lower extremity ROM: full range of motion in all major muscle groups of the bilateral upper and lower extremities, no focal deficits appreciated Sensory Exam: Senory exam to light touch is intact C5-T1 Senosry exam to light touch is intact L2-S1 Motor: 4+/5 strength appreciated the bilateral lower extremities with hip flexion 5/5 strength appreciated in the bilateral lower extremities with knee exten howard, knee flexion, plantarflexion, dorsiflexion, EHL, FHL Reflexes: 2/4 in all UE and LE negative clonus bilaterally, negative Babinski bilaterally - Labs CBC & Chem 7: 12/25/23 06:16 12/25/23 06:16 Labs: Abnormal Lab Results - Last 24 Hours (Table) 12/25/23 12/25/23 Range/Units 06:16 06:16 WBC 10.63 H (4.50-10.00) X 10*3/uL RBC 3.48 L (4.10-5.20) X 10*6/uL MCV 109.8 H (80.0-97.0) FL MCH 35.6 H (27.0-32.0) pg Immature Gran # 0.10 H (0.00-0.04) X 10*3/uL Neutrophils # 8.20 H (1.80-7.70) X 10*3/uL Monocytes # 1.23 H (0.20-1.00) X 10*3/uL Eosinophils # 0.01 L (0.04-0.35) X 10*3/uL Anion Gap 12.30 H (4.00-12.00) mmol/L BUN/Creatinine Ratio 31.33 H (12.00-20.00) Ratio Assessment and Plan Assessment: Low back pain T12 A3 burst fracture postoperative day #1 status post open treatment and fixation of T12, posterior stabilization T11-L1 Right-sided sacral alar fracture, old Difficulty with ambulation Other medical comorbidities Plan: Weight-bear as tolerated with walker Continue use of LSO brace when up and ambulating Pain control, continue with current medications PT/OT recommendation, weight-bear as tolerated, avoid bending, twisting and lifting Discontinue urinary catheter Other medical specialty recommendations appreciated discharge planning: Discussed with patient the need to get up and ambulate, pending how she does with ambulation discharge home with home health care versus subacute rehab. Time with Patient: Less than 30
--- NOTE | 2023-12-25 12:57 | P.PN ---
Subjective Progress Note Date: 12/25/23 63-year-old female, with history of colon cancer in 2008, and vitamin D deficiency presents emergency department via EMS accompanied by her for chief complaint of a fall on Thursday. Patient states that she was getting up in the middle the night to use the restroom, dizziness from standing up too q uickly, when she went to reach for the bedroom door with a pulling sensation in her back while she fell to the ground on her right-hand side. It has been having difficulty ambulating over the last few days due to pain and tenderness of her spine. Patient denies loss of bladder or bowel continence or saddle anesthesias. Patient denies paresthesias to bilateral lower extremities, and has full range of motion intact of her lower extremities. Has been taking Tylenol Motrin at home with minimal relief. Has a history of a pelvic fracture which occurred last year, patient was treated conservatively. X-ray of the thoracic spine is unremarkable X-ray of lumbar spine reveals indeterminate compression deformity of L1 vertebra with 25% height loss CT of the lumbar spine reveals moderate compression fraction of T12 with 10 to 15% retropulsion 12/20/2023 Patient is seen and evaluated resting in bed; reports she was able to ambulate with LSO brace Vital signs are reviewed and stable with temperature 97.9, pulse 73, respirations 16 and blood pressure of 141/72 O2 saturation 94% on room air Patient is admitted post fall with T12 burst fracture Orthopedic surgery on board and recommending to continue with conservative treatment with anti-inflammatories, muscle relaxers as needed --Orthopedic surgery recommending patient set up for outpatient PT with weightbearing as tolerated, avoid bending, twisting and lifting; patient can be discharged tomorrow and will follow-up with orthopedic surgery as an outpatient 12/21/2023 Patient remains with back pain, she rated about 5/10 in severity She has a brace Patient currently has been evaluated by surgical team for possible surgical spine stabilization versus kyphoplasty Will continue monitoring 12/22/2023 Patient is currently lying in bed with no specific symptom. She is not in distress. Pain controlled She is pending open fracture treatment of T12 with posterior stabilization from T11-L1 on Thursday/12/23/2023 No new complaint No chest pain or dyspnea Patient is pending surgical intervention tomorrow with orthopedic team 12/24/2023 Patient awake alert She denies chest pain or dyspnea. No GI or abdominal complaints. Her abdomen soft Patient and at bedside all questions answered Patient is going for orthopedic procedure today for open fracture treatment of T12 with posterior stabilization from T11-L1 on 12/24. Patient seen and examined. S/p Open treatment T12 fracture with T11-L1 stabilization. Still having back pain but states it has improved from yesterday REVIEW OF SYSTEMS: CONSTITUTIONAL: No fever, no malaise,. CARDIOVASCULAR: No chest pain, no palpitations, no syncope. PULMONARY: No shortness of breath, no cough, GASTROINTESTINAL: No diarrhea, no nausea, no vomiting, no abdominal pain. NEUROLOGICAL: No headaches, no weakness, PHYSICAL EXAMINATION: GENERAL: The patient is alert and oriented x3, not in any acute distress. Well developed, well nourished. HEENT: Pupils are round and equally reacting to light. EOMI. No scleral icterus. No conjunctival pallor. Normocephalic, atraumatic. No pharyngeal erythema. No thyromegaly. CARDIOVASCULAR: S1 and S2 present. No murmurs, rubs, or gallops. PULMONARY: Chest is clear to auscultation, no wheezing or crackles. ABDOMEN: Soft, nontender, nondistended, normoactive bowel sounds. No palpable organomegaly. MUSCULOSKELETAL: No joint swelling or deformity. EXTREMITIES: No cyanosis, clubbing, or pedal edema. NEUROLOGICAL: Gross neurological examination did not reveal any focal deficits. SKIN: Surgical incision seen in the back Assessment and plan 1. Fall with compression fracture of T12 vertebra on CT of thoracic spine --X-ray of thoracic spine reveals L1 vertebral body fracture with 25% height loss which is indeterminate age S/p Open treatment T12 fracture with T11-L1 stabilization. Continue pain management Encourage ambulation encourage use of I-S PT and OT following 2. Mild JESSICA; BUN slightly elevated at 30 with creatinine normal at 0.65; patient is encouraged to increase fluid intake Labs and medication were reviewed.. Continue same treatment. Continue with symptomatic treatment. Resume home medication. Monitor labs and vitals. DVT and GI prophylaxis. Further recommendations as per clinical course of the pa tiedaniel Dictation was produced using [employer] dictation software. please excuse any grammatical, word or spelling errors. Objective - Vital Signs Vital signs: Vital Signs Temp 98.3 F 12/25/23 07:20 Pulse 107 H 12/25/23 07:20 Resp 17 12/25/23 07:20 BP 159/84 12/25/23 07:20 Pulse Ox 94 L 12/25/23 07:20 FiO2 Intake & Output 12/24/23 12/25/23 12/25/23 18:59 06:59 18:59 Intake Total 900 Output Total 175 600 Balance 725 -600 Intake: IV 900 Output: Urine 100 600 Estimated Blood Loss 75 Other: Voiding Method Bedside Commode Bedside Commode External Catheter # Voids 0 - Labs CBC & Chem 7: 12/25/23 06:16 12/25/23 06:16 Labs: Abnormal Lab Results - Last 24 Hours (Table) 12/25/23 12/25/23 Range/Units 06:16 06:16 WBC 10.63 H (4.50-10.00) X 10*3/uL RBC 3.48 L (4.10-5.20) X 10*6/uL MCV 109.8 H (80.0-97.0) FL MCH 35.6 H (27.0-32.0) pg Immature Gran # 0.10 H (0.00-0.04) X 10*3/uL Neutrophils # 8.20 H (1.80-7.70) X 10*3/uL Monocytes # 1.23 H (0.20-1.00) X 10*3/uL Eosinophils # 0.01 L (0.04-0.35) X 10*3/uL Anion Gap 12.30 H (4.00-12.00) mmol/L BUN/Creatinine Ratio 31.33 H (12.00-20.00) Ratio
[2023-12-25] MEDS: HYDROcodone/APAP 10-325MG 1 EACH TAB PO PRN (21:18)
[2023-12-26 08:13] VITALS: BP 138/81; PULSE 101; RESP 18; TEMP 98.6
--- NOTE | 2023-12-26 12:43 | P.DS ---
Providers Date of admission: 12/22/23 08:19 Expected date of discharge: 12/26/23 Attending physician: Yola Schaffer Consults: 12/18/23 12:31 Consult Physician Routine Consulting Provider: Gabe Escobar Consult Reason/Comments: L1 compression fracture Do you want consulting provider notified?: Yes Primary care physician: Gurdeep Shultz Hospital Course: Discharge diagnoses; 1. Fall with compression fracture of T12 vertebra on CT of thoracic spine --X-ray of thoracic spine reveals L1 vertebral body fracture with 25% height loss which is indeterminate age S/p Open treatment T12 fracture with T11-L1 stabilization. Being discharged in stable condition 2. Mild JESSICA; BUN slightly elevated at 30 with creatinine normal at 0.65; patient is encouraged to increase fluid intake Hospital course; 63-year-old female, with history of colon cancer in 2008, and vitamin D deficiency presents emergency department via EMS accompanied by her for chief complaint of a fall on Thursday. Patient states that she was getting up in the middle the night to use the restroom, dizziness from standing up too quickly, when she went to reach for the bedroom door with a pulling sensation in her back while she fell to the ground on her right-hand side. It has been having difficulty ambulating over the last few days due to pain and tenderness of her spine. Patient denies loss of bladder or bowel continence or saddle anesthesias. Patient denies paresthesias to bilateral lower extremities, and has full range of motion intact of her lower extremities. Has been taking Tylenol Motrin at home with minimal relief. Has a history of a pelvic fracture which occurred last year, patient was treated conservatively. X-ray of the thoracic spine is unremarkable X-ray of lumbar spine reveals indeterminate compression deformity of L1 vertebra with 25% height loss CT of the lumbar spine reveals moderate compression fraction of T12 with 10 to 15% retropulsion 12/20/2023 Patient is seen and evaluated resting in bed; reports she was able to ambulate with LSO brace Vital signs are reviewed and stable with temperature 97.9, pulse 73, respirations 16 and blood pressure of 141/72 O2 saturation 94% on room air Patient is admitted post fall with T12 burst fracture Orthopedic surgery on board and recommending to continue with conservative treatment with anti-inflammatories, muscle relaxers as needed --Orthopedic surgery recommending patient set up for outpatient PT with weightbearing as tolerated, avoid bending, twisting and lifting; patient can be discharged tomorrow and will follow-up with orthopedic surgery as an outpatient 12/21/2023 Patient remains with back pain, she rated about 5/10 in severity She has a brace Patient currently has been evaluated by surgical team for possible surgical spine stabilization versus kyphoplasty Will continue monitoring 12/22/2023 Patient is currently lying in bed with no specific symptom. She is not in distress. Pain controlled She is pending open fracture treatment of T12 with posterior stabilization from T11-L1 on 12/23/2023 No new complaint No chest pain or dyspnea Patient is pending surgical intervention tomorrow with orthopedic team 12/24/2023 Patient awake alert She denies chest pain or dyspnea. No GI or abdominal complaints. Her abdomen soft Patient and at bedside all questions answered Patient is going for orthopedic procedure today for open fracture treatment of T12 with posterior stabilization from T11-L1 on 12/24. Patient seen and examined. S/p Open treatment T12 fracture with T11-L1 stabilization. Still having back pain but states it has improved from yesterday 12/25. Patient seen and examined. Pain is under control. Patient keen to be discharged home. Orthopedic cleared the patient for discharge PHYSICAL EXAMINATION: GENERAL: The patient is alert and oriented x3, not in any acute distress. Well developed, well nourished. HEENT: Pupils are round and equally reacting to light. EOMI. No scleral icterus. No conjunctival pallor. Normocephalic, atraumatic. No pharyngeal erythema. No thyromegaly. CARDIOVASCULAR: S1 and S2 present. No murmurs, rubs, or gallops. PULMONARY: Chest is clear to auscultation, no wheezing or crackles. ABDOMEN: Soft, nontender, nondistended, normoactive bowel sounds. No palpable organomegaly. MUSCULOSKELETAL: No joint swelling or deformity. EXTREMITIES: No cyanosis, clubbing, or pedal edema. NEUROLOGICAL: Gross neurological examination did not reveal any focal deficits. SKIN: Surgical incision seen in the back Dictation was produced using [employer] dictation software. please excuse any grammatical, word or spelling errors. Patient Condition at Discharge: Good Plan - Discharge Summary New Discharge Prescriptions: New polyethylene glycoL 3350 [Miralax] 17 gm PO DAILY PRN #21 packet PRN Reason: Constipation HYDROcodone/APAP 7.5-325MG [[place] 7.5] 1 each PO Q6HR PRN #28 tab PRN Reason: Pain cefaDROXiL [Duricef] 500 mg PO Q12HR 5 Days #10 cap Cyclobenzaprine [Flexeril] 5 mg PO BID PRN #30 tablet PRN Reason: Constipation Sennosides/Docusate Sodium [Senna-S 8.6-50 mg Tablet] 2 each PO DAILY PRN #30 tablet PRN Reason: Constipation Continue Acetaminophen Tab [Tylenol] 2,000 mg PO Q6HR PRN PRN Reason: Pain Or Fever > 100.5 Multivit-Minerals/Folic Acid [Centrum Adult 50 Plus Gummy] 80 mcg PO DAILY Discharge Medication List Acetaminophen Tab [Tylenol] 2,000 mg PO Q6HR PRN 12/17/23 [History] Multivit-Minerals/Folic Acid [Centrum Adult 50 Plus Gummy] 80 mcg PO DAILY 11/20 05/14 [History] Cyclobenzaprine [Flexeril] 5 mg PO BID PRN #30 tablet 12/25/23 [Rx] HYDROcodone/APAP 7.5-325MG [[place] 7.5] 1 each PO Q6HR PRN #28 tab 12/25/23 [Rx] Sennosides/Docusate Sodium [Senna-S 8.6-50 mg Tablet] 2 each PO DAILY PRN #30 tablet 12/25/23 [Rx] cefaDROXiL [Duricef] 500 mg PO Q12HR 5 Days #10 cap 12/25/23 [Rx] polyethylene glycoL 3350 [Miralax] 17 gm PO DAILY PRN #21 packet 12/25/23 [Rx] Follow up Appointment(s)/Referral(s): Gurdeep Shultz MD [Primary Care Provider] - 1-2 days Gabe Escobar DO [Doctor of Osteopathic Medicine] - 2 Weeks Activity/Diet/Wound Care/Special Instructions: Spine Discharge and Recovery Instructions Dressing: Leave your dressing in place for a total of 5 days post operatively. Then you may remove your dressing and leave open to air. Keep the area clean and if not able to keep area clean, then cover with sterile gauze and tape. Showering: You may shower 3 days after your procedure allowing soap and water to run over incision. Do not scrub. Do not soak. Blot dry. Follow up: Please confirm a follow up appointment with your surgeon 3 weeks post operatively. Please make an appointment to follow up with your PCP in 1-2 weeks after surgery for evaluation `3 phase, 3-week plan POST OP WEEKS 1-3 1. Lifting/carrying/pushing/pulling limited to less than 5 pounds. 2. Do not sit for longer than 15 minutes at one time. Get up and walk around. Prolonged sitting is NOT advised. If you lay down, see if you can tolerate laying down on you front (belly side) 3. Walk for periods of 15 minutes = 1 mile but no longer; do it multiple times times each day. 4. Ice your low back after activity. POST OP WEEKS 3-6 1. Lifting limited to less than 20 pounds. 2. Do not sit for longer than 30 minutes at a time. Frequently change positions. Use a sit-to stand workstation or take frequent breaks from sitting if you have returned to work. 3. Walk for 30 minutes each day. If possible, do these three or more times a day POST OP WEEKS 6+ At your 6-week appointment we will give you a physical therapy referral to focus on a core stabilization and strengthening program. You should also work on leg & buttock strengthening, hamstring & quadriceps stretching, and continue a low im pact aerobic activity program such as swimming, walking, or riding a stationary bicycle. During the initial 6 weeks after your surgery, you are at the highest risk of re-injuring your spine. You should generally avoid BLTs (bending, lifting and twisting combination motions) and follow the above guidelines to reduce the chance of reinjury. You can anticipate post op appointments in our office at approximately 3 weeks and 6 weeks after your surgery. INCISION CARE: If your incision is not draining you do NOT need to cover it with a dressing. Keep your incision clean, dry and intact. In most cases, we apply skin glue, neli or sutures to the incision at the time of surgery. This will be like a crust or have the appearance of a scab and will fall off in time on its own. The stitches or neli need to be removed at 3 weeks post op appointment. You may begin to shower 3 days after surgery (this allows the glue to elias well). However, please avoid scrubbing the incision site or peeling off any of the skin glue. This will ensure optimal healing of your incision. Also, during this time avoid soaking the incision area in water - this includes swimming pools, hot tubs or baths. No ointments, lotions or oils on the incision until your surgeon allows. Leave neli, sutures or glue in place. Neurological dysfunction that comes on suddenly can also be a sign of a stroke. Below some common symptoms of a stroke are listed: B - balance difficulty such as sudden onset walking or leaning to one side - NEW E - eye problem such as sudden double vision or trouble seeing on one side - NEW F - Facial weakness or numbness on one side - NEW A - Arm or leg weakness or numbness on one side - NEW S - Slurred speech or difficulty with word finding - NEW T - Time is BRAIN! Call 911 as soon as you recognize these symptoms Diet: Consume a regular diet rich in vegetables and lean protein such as chicken or fish. You should consume in a ratio of approximately 20% fats|40% carbohydrates|40%protein. Vegetables, sweet potatoes, brown rice or quinoa are examples of good carbohydrates. Chips, white bread, cookies and sweets/sugar are examples of bad carbohydrates. Limit your bad carbs, go wild with good carbs. "Life's Simple 7" Guidelines as per [place] [employer] These will help you reclaim your life after surgery and rotary helper in your recovery, keeping in mind your restrictions. (1) Get Active. Physical activity can help people lose weight, control high blood pressure and cholesterol, feel emotionally better, and sleep better. (2) Control Cholesterol. Avoid a diet high in saturated fat, trans fat, & cholesterol. Limit whole milk & cream, ice cream, butter, egg yolks, processed meats (like sausage and hot dogs), and fatty meats. Choose healthy foods that are low in saturated fat, trans fat and cholesterol which include: Fruits and vegetables, fiber rich grain products (like whole grain pasta and brown rice), lean meat such as chicken, fish, nuts, seeds, and legumes. (3) Eat Better. Eat small portions. Shop at the grocery with a list and do no t stray from it. Tips for a healthy diet include: Limit sodium intake to less than 1500mg daily, avoid prepackaged, processed, and fast foods, choose a diet rich in fruits, vegetables, and whole grain, high fiber foods, and limit saturated & cholesterol in your diet. (4) Manage Blood Pressure. If you have high blood pressure, you should have a cuff at home so that you can check your blood pressure regularly. Be sure you have a good cuff. An arm one is generally better than a wrist one. Bring the cuff to a doctor's appointment to validate that the measurements that your cuff are taking are accurate. Take your blood pressure twice daily when you are sitting down and relaxing. Record the numbers in a log and bring this log with you to your doctors' appointments. (5) Lose Weight if your BMI is above 25. A healthy BMI is between 19-25. To calculate Your BMI, you may use a Standard BMI Calculator on the NIH BMI website: <www.nhlbi.nih.gov/guidelines/obesity/BMI/bmicalc.htm>. Weigh oneself daily. If you are overweight, set a goal to lose weight. A pound a week loss if needed is a good target. (6) Reduce Blood Sugar. Limit foods and liquids with "added sugars." (Added sugars include sucrose, fructose, glucose, maltose, dextrose, high fructose corn syrup, corn syrup, concentrated fruit juice and honey). (7) Stop Smoking. If you smoke, quitting smoking is one of the best things that you can do for your health. Smoking increases your risk of heart attack, stroke, and peripheral vascular disease, which is a build-up of plaque in your arteries. Please discard all the cigarettes and lighters in your house. Have a plan for what you will do when you have the urge to smoke. Direct and second- hand smoke shortens your life as well as the lives of your family, friends and others around you. For your health and the health of those around you, please consider quitting! Proper Bending Body Mechanics: Maintain a wide stance with one foot slightly in front of the other. Keep your back straight. Bend utilizing the strength in your hips and knees. Do not bend at the waist. Maintain the lifted object at your waist-level close to your body. Avoid lifting weight that causes immediately pain or pain anywhere in the body afterwards. Smoking/Nicotine If there was ever one thing that you could do to increase your overall health, decrease your risk of cardiovascular problems by about 39% the second you make the choice, it is to STOP SMOKING. Your body's most instant gratification is the second you stop smoking. We have all heard the studies, read the articles but it is true, smoking is extremely bad for your overall health, and moreover it is detrimental to your bone health. Nicotine, IN ANY FORM, kills bone cells, prevents your body from healing fractures, and significantly prolongs healing after surgery. In spine surgery specifically, it increases your risk of not healing your bones to create a fusion and increases your risk of having a revision surgery due to this up to 60%. I know it is hard. I know it feels impossible. But there are ways. Take control of your life. We are here to help you through it. And when you are ready, ask us and we can direct you to help if you desire. Use the START Plan to Quit Smoking (please visit the Teach [employer] People.org website listed below for more information): S = Set a quit date. Choose a date within the next 2 weeks, so you have enough time to prepare without losing your motivation to quit. If you mainly smoke at work, quit on the weekend, so you have a few days to adjust to the change. T = Tell family, friends, and co-workers that you plan to quit. Let your friends and family in on your plan to quit smoking and tell them you need their support and encouragement to stop. Look for a quit gerard who wants to stop smoking as well. You can help each other get through the rough times. A = Anticipate and plan for the challenges you'll face while quitting. Most people who begin smoking again do so within the first 3 months. You can help yourself make it through by preparing ahead for common challenges, such as nicotine withdrawal and cigarette cravings. R = Remove cigarettes and other tobacco products from your home, car, and work. Throw away all your cigarettes (no emergency pack!), lighters, ashtrays, and matches. Wash your clothes and freshen up anything that smells like smoke. Shampoo your car, clean your drapes and carpet, and steam your furniture. T = Talk to your doctor about getting help to quit. Your doctor can prescribe medication to help with withdrawal and suggest other alternatives. If you can't see a doctor, you can get many products over the counter at your local pharmacy or grocery store, including the nicotine patch, nicotine lozenges, and nicotine gum. Resources for Quitting Smoking: <https://www.[place].gov/documents/[facility]/Quit_[place]_Resources_for_patients_313480_7.pdf> Supplementation: Take recommended dosages of Vitamin D and Calcium to help fortify your bones and help them to heal. See your health maintenance packet for dosages and recommended levels. DVT/VTE prophylaxis: You will be given compression stockings from the hospital. Wear these daily for the first two weeks after surgery. You may take them off at night. You may be prescribed a medication to help thin your blood. Take this as directed. If you are not prescribed this medication, early and frequent ambulation has been shown to be the best prophylaxis to deep vein thrombosis and sequelae related to this event. Discharge Disposition: HOME WITH HOME HEALTH SERVICES
== END 2023-12-26 12:12 | disposition home health service (06) | DRG 519 ==
LOC: EC 16:44 → 6NMEDSUR 18:46 → OBSVTOIN 18:46 → 6NMEDSUR 19:36 → 5NMEDONC 19:36 → INTOOBSV 12-22 08:19 → OBSVTOIN 12-22 08:19 → UNDODISIN 12-26 12:12
PROVIDERS: ADMIT Hospitalist; ATTEND Hospitalist
PROC: XNU4356 Supplement Thoracic Vertebra with Mechanically Expandable (Paired) Synthetic Substitute, Percutaneous Approach, New Technology Group 6 (ICD-10-PCS; 2023-12-24)
PROC: 8E0WXBZ Computer Assisted Procedure of Trunk Region (ICD-10-PCS; 2023-12-24)
PROC: 0PS404Z Reposition Thoracic Vertebra with Internal Fixation Device, Open Approach (ICD-10-PCS; principal; 2023-12-24 10:30)
DX: S22.081A Stable burst fracture of T11-T12 vertebra, initial encounter for closed fracture (principal); N17.9 Acute kidney failure, unspecified; S32.019A Unspecified fracture of first lumbar vertebra, initial encounter for closed fracture; S32.119A Unspecified Zone I fracture of sacrum, initial encounter for closed fracture; F17.200 Nicotine dependence, unspecified, uncomplicated; W18.30XA Fall on same level, unspecified, initial encounter; I10 Essential (primary) hypertension; Y92.009 Unspecified place in unspecified non-institutional (private) residence as the place of occurrence of the external cause; Z85.038 Personal history of other malignant neoplasm of large intestine; Z88.2 Allergy status to sulfonamides
CPT/HCPCS: 72072; 72100; 72131; 80048; 85025; 85027; 88307; 88311; 96374; 99285

== ENCOUNTER 2024-09-14 12:49 | Emergency (ER) | payer OTHER, MEDICARE ==
--- NOTE | 2024-09-14 12:58 | ED ---
Fall HPI - General Chief Complaint: Fall Stated Complaint: Fall, R side Time Seen by Provider: 09/14/24 12:57 Source: patient, family, RN notes reviewed Mode of arrival: wheelchair - History of Present Illness Initial Comments: This is a 64-year-old female presenting to emergency department chief complaint of a fall. States that she was walking outside at 1130 and slipped on ice falling hitting the back of her head on ice and injuring her posterior right ribs. She denies loss of consciousness at the time of the injury. States that the fall and force made her "lose her breath". Currently, she is denying shortness of breath, difficulty breathing, chest pain. States that she has a mild headache. Denies bleeding at the time of the injury. States that she took Tylenol after the injury. Denies other injuries at the time of the fall. No other acute complaints at this time. Denies use of blood thinners. - Related Data Home Medications Medication Instructions Recorded Confirmed Acetaminophen Tab [Tylenol] 2,000 mg PO Q6HR PRN 12/17/23 12/17/23 Multivit-Minerals/Folic Acid 80 mcg PO DAILY 12/17/23 12/17/23 [Centrum Adult 50 Plus Gummy] Previous Rx's Medication Instructions Recorded Cyclobenzaprine [Flexeril] 5 mg PO BID PRN #30 tablet 12/25/23 HYDROcodone/APAP 7.5-325MG [[place] 1 each PO Q6HR PRN #28 tab 12/25/23 7.5] Sennosides/Docusate Sodium 2 each PO DAILY PRN #30 tablet 12/25/23 [Senna-S 8.6-50 mg Tablet] cefaDROXiL [Duricef] 500 mg PO Q12HR 5 Days #10 cap 12/25/23 polyethylene glycoL 3350 [Miralax] 17 gm PO DAILY PRN #21 packet 12/25/23 Ibuprofen [Motrin] 800 mg PO Q6HR #30 tab 09/14/24 Allergies Allergy/AdvReac Type Severity Reaction Status Date / Time Sulfa (Sulfonamide Allergy Anaphylaxis Verified 09/14/24 12:52 Antibiotics) Review of Systems ROS Statement: Those systems with pertinent positive or pertinent negative responses have been documented in the HPI. ROS Other: All systems not noted in ROS Statement are negative. Past Medical History Past Medical History: Cancer Additional Past Medical History / Comment(s): Hx of Colon CA 2009 History of Any Multi-Drug Resistant Organisms: None Reported Past Surgical History: Bowel Resection, Section Additional Past Surgical History / Comment(s): Colonoscopies Past Anesthesia/Blood Transfusion Reactions: No Reported Reaction Past Psychological History: No Psychological Hx Reported Smoking Status: Former smoker Past Alcohol Use History: None Reported Past Drug Use History: None Reported - Past Family History Mother Family Medical History: Cancer General Exam Limitations: no limitations Head exam: Present: other (posterior scalp bump with no laceration ) Neck exam: Present: normal inspection. Absent: tenderness, meningismus, lymphadenopathy Respiratory exam: Present: normal lung sounds bilaterally, chest wall tenderness (posterior right ribs with no overlying skin changes or crepitus). Absent: respiratory distress, wheezes, rales, rhonchi, stridor Cardiovascular Exam: Present: regular rate, normal rhythm, normal heart sounds. Absent: systolic murmur, diastolic murmur, rubs, gallop, clicks GI/Abdominal exam: Present: soft, normal bowel sounds. Absent: distended, tenderness, guarding, rebound, rigid Extremities exam: Present: normal inspection, full ROM, normal capillary refill. Absent: tenderness, pedal edema, joint swelling, calf tenderness Back exam: Present: normal inspection Neurological exam: Present: alert, oriented X3, CN II-XII intact Course Vital Signs 09/14/24 09/14/24 12:53 14:38 Temperature 97.5 F L 98.4 F Pulse Rate 91 90 Respiratory 20 18 Rate Blood Pressure 167/85 165/91 O2 Sat by Pulse 96 97 Oximetry Medical Decision Making - Medical Decision Making Was pt. sent in by a medical professional or institution (, PA, APPLICATION LEAD, urgent care, hospital, or shelter...) When possible be specific @ -No Did you speak to anyone other than the patient for history (EMS, parent, family, police, friend...)? What history was obtained from this source @ -No Did you review nursing and triage notes (agree or disagree)? Why? @ -I reviewed and agree with nursing and triage notes Were old charts reviewed (outside hosp., previous admission, EMS record, old EKG, old radiological studies, urgent care reports/EKG's, shelter records)? Report findings @ -No old charts were reviewed Differential Diagnosis (chest pain, altered mental status, abdominal pain women, abdominal pain men, vaginal bleeding, weakness, fever, dyspnea, syncope, headache, dizziness, GI bleed, back pain, seizure, CVA, palpatations, mental health, musculoskeletal)? @ -Concussion, cervical neck fracture, cervical neck sprain, rib fracture, rib contusion, this list is not all inclusive EKG interpreted by me (3pts min.). @ -none X-rays interpreted by me (1pt min.). @ -XR of the the right ribs and AP chest no acute process CT interpreted by me (1pt min.). @ -CT of the brain and C-spine without contrast no evidence for acute cervical or intracranial abnormality U/S interpreted by me (1pt. min.). @ -None done What testing was considered but not performed or refused? (CT, X-rays, U/S, labs)? Why? @ -None What meds were considered but not given or refused? Why? @ -None Did you discuss the management of the patient with other professionals (professionals i.e. , PA, APPLICATION LEAD, lab, RT, psych nurse, social worker clinical, child care director, teacher, protocol officer, director case)? Give summary @ -No Was smoking cessation discussed for >3mins.? @ -No Was critical care preformed (if so, how long)? @ -No Were there social determinants of health that impacted care today? How? (Homelessness, low income, unemployed, alcoholism, drug addiction, transportation, low edu. Level, literacy, decrease access to med. care, group home, rehab)? @ -No Was there de-escalation of care discussed even if they declined (Discuss DNR or withdrawal of care, Hospice)? DNR status @ -No What co-morbidities impacted this encounter? (DM, HTN, Smoking, COPD, CAD, Cancer, CVA, ARF, Chemo, Hep., AIDS, mental health diagnosis, sleep apnea, morbid obesity)? @ -None Was patient admitted / discharged? Hospital course, mention meds given and route, prescriptions, significant lab abnormalities, going to OR and other pertinent info. @ -Discharge. 64-year-old female presenting with injuries after a fall. She is noted to have right posterior ribs back pain and this has been on palpation and with range of motion. There are no skin changes such as ecchymosis or laceration. Vitals are stable. She is provided with pain medication pending imaging. CT of the brain and C-spine and x-ray of the AP chest and right ribs no acute process. She is provided with lidocaine patch for the back and outpatient prescription for motrin. case discussed with Dr. Kaba Undiagnosed new problem with uncertain prognosis? @ -No Drug Therapy requiring intensive monitoring for toxicity (Heparin, Nitro, Insulin, Cardizem)? @ -No Were any procedures done? @ -No Diagnosis/symptom? @ -fall, posterior right rib pain Acute, or Chronic, or Acute on Chronic? @ -acute Uncomplicated (without systemic symptoms) or Complicated (systemic symptoms)? @ -uncomplicated Side effects of treatment? @ -No Exacerbation, Progression, or Severe Exacerbation? @ -No Poses a threat to life or bodily function? How? (Chest pain, [place], [place], pneumonia, PE, COPD, DKA, ARF, appy, cholecystitis, CVA, Diverticulitis, Homicidal, Suicidal, threat to staff... and all critical care pts) @ -No Disposition Clinical Impression: Fall, Rib pain on right side Disposition: HOME SELF-CARE Condition: Good Instructions (If sedation given, give patient instructions): Back Pain (ED) Additional Instructions: Please return to the Emergency Department if symptoms worsen or any other concerns. Prescriptions: Ibuprofen [Motrin] 800 mg PO Q6HR #30 tab Is patient prescribed a controlled substance at d/c from ED?: No Referrals: Gurdeep Shultz MD [Primary Care Provider] - 1-2 days Time of Disposition: 14:27
--- NOTE | 2024-09-14 13:31 | XR ---
EXAMINATION TYPE: XR ribs RT w pa chest xray DATE OF EXAM: 09/14/2024 1:21 PM CLINICAL INDICATION:Female, 64 years old with history of fall, pain; [facility] COMPARISON: Thoracic spine radiograph 12/17/2023 TECHNIQUE: XR ribs RT w pa chest xray; Frontal and oblique views of the ribs with frontal chest radio graph. FINDINGS: The ribs have a normal appearance. No evidence of acute fracture. Mild prominence of the i nterstitial markings bilaterally likely chronic in nature otherwise the lungs are clear. The cardiac silhouette is normal in size. Surgical fusion hardware and vertebroplasty changes are seen involvin g the lower spine. IMPRESSION: No acute osseous pathology. Postsurgical changes. [facility], , 09/14/2024 1:29 PM
[2024-09-14] MEDS: MORPHINE SULFATE 4 MG/ML SYRINGE IM STA (13:33)
--- NOTE | 2024-09-14 14:16 | CT ---
EXAMINATION TYPE: CT brain cspine wo con CT DLP: 1335 mGycm, Automated exposure control for dose reduction was used. DATE OF EXAM: 09/14/2024 1:41 PM COMPARISON: None. CLINICAL INDICATION:Female, 64 years old with history of fall, injury; pain after fall today TECHNIQUE: Brain: Multiple axial CT images of the brain were obtained without IV contrast. Cspine: Axial CT images from the skull base to the inferior aspect of T2 we obtained without intraven ous contrast. Coronal and sagittal reformatted images were also reviewed. . FINDINGS: Brain: Extra-axial spaces: No abnormal extra-axial fluid collections. Ventricular system: Dilatation in proportion to cerebral atrophy. Cerebral parenchyma: No acute intraparenchymal hemorrhage or mass effect. The wyatt-white junction is well differentiated. Scattered hypoattenuating areas are seen within the white matter. Cerebellum: Unremarkable. Mass effect: No evidence of midline shift. Intracranial vasculature: Atherosclerotic calcifications of the intracranial vessels. Soft tissues: Normal. Calvarium/osseous structures: No depressed skull fracture. Paranasal sinuses and mastoid air cells: Clear. Visualized orbits: Orbital contents are intact. Cervical spine: Fracture: No acute fractures. Osseous structures: Mild multilevel degenerative disease. Diffuse osteopenia. Vertebral alignment: Within normal limits. Spinal canal/Neural Foramina: Multilevel disc osteophyte complexes are seen with no evidence of signi ficant spinal canal narrowing. No evidence for significant neural foraminal stenosis. Neck soft tissues: Prevertebral soft tissues are within normal limits. Other: The airway is patent. The lung apices are clear. Vascular sclerosis. IMPRESSION: 1. No acute intracranial process. 2. Nonspecific white matter changes, likely secondary to chronic small vessel ischemic disease. 3. No evidence of acute cervical spine fracture. 4. Mild multilevel degenerative disc disease. [facility], , 09/14/2024 2:14 PM
[2024-09-14] MEDS: IBUPROFEN 600 MG STARTER PACK 4 TAB BTL PO STA (14:34)
[2024-09-14] MEDS: LIDOCAINE 4% PATCH TOPICAL ONE (14:34)
[2024-09-14 15:08] VITALS: BP 165/91; PULSE 90; RESP 18; TEMP 98.4
== END 2024-09-14 14:52 | disposition home or self-care (01) ==
LOC: EC 12:49
DX: R07.81 Pleurodynia (principal); Z87.891 Personal history of nicotine dependence; Z88.2 Allergy status to sulfonamides; W00.0XXA Fall on same level due to ice and snow, initial encounter; Y93.01 Activity, walking, marching and hiking
CPT/HCPCS: 71101; 72125; 70450; 99284; 96372; J2270